=== PATIENT | female | born 1955 | race Caucasian/White ===

== ENCOUNTER 2017-04-15 10:22 | Emergency (ER) | payer MEDICAID, OTHER ==
[~2017-04-15] VITALS: Ht 170.2 cm; Wt 90.7 kg
--- NOTE | 2017-04-15 10:22 | NUR ---
Patient SHANNANLuciano RENETTAS, triaged by RN and transferred to via wheelchair.
--- NOTE | 2017-04-15 10:24 | NUR ---
Dr. Rothman evaluating patient in OF.
[2017-04-15 10:27] VITALS: BP 152/80
--- NOTE | 2017-04-15 10:36 | NUR ---
PATIENT PRESENTS TO ED WITH RIGHT WRIST PAIN AND LEFT KNEE PAIN S/P MECHANICAL FALL . PT STATES DENIES DIZZINESS, DENIES HEAD INJURY OR KO . DENIES N/V/D; SKIN IS PINK/WARM/DRY; AAOX4 WITH EVEN AND STEADY GAIT; LUNGS CLEAR BL; HR EVEN AND REGULAR; PT DENIES ANY FEVER, CP, SOB, OR COUGH AT THIS TIME; PATIENT STATES PAIN OF 9/10 AT THIS TIME; VSS; PATIENT POSITIONED FOR COMFORT; HOB ELEVATED; BEDRAILS UP X2; BED DOWN. ER MD MADE AWARE OF PT STATUS.
--- NOTE | 2017-04-15 10:38 | NUR ---
PT TO X-RAY VIA WHEEL CHAIR
--- NOTE | 2017-04-15 10:52 | NUR ---
Patient returned from XRAY, transferred to OF.
--- NOTE | 2017-04-15 11:27 | NUR ---
Patient taken to XRAY via wheelchair by tech.
--- NOTE | 2017-04-15 11:49 | NUR ---
Pateint returned from XRAY, transferred to bed 7 for further care. RN evaluating patient at bedside.
--- NOTE | 2017-04-15 12:10 | NUR ---
AMBULATORY TO AND FROM RESTROOM WITH STEADY GAIT
--- NOTE | 2017-04-15 12:43 | NUR ---
Patient discharged with v/s stable. Written and verbal after care instructions given and explained. Patient verbalized understanding. Ambulatory with steady gait. All questions addressed prior to discharge. Advised to follow up with PMD. X-RAY READS HANDED TO PT TO F/U WITH PMD
[2017-04-15 12:44] VITALS: BP 136/73
== END 2017-04-15 12:43 | disposition home or self-care (01) ==
LOC: MED 10:22
DX: S00.31XA Abrasion of nose, initial encounter (principal); M25.562 Pain in left knee; M79.631 Pain in right forearm; Z88.0 Allergy status to penicillin; Z88.1 Allergy status to other antibiotic agents; E11.9 Type 2 diabetes mellitus without complications; I10 Essential (primary) hypertension; W01.0XXA Fall on same level from slipping, tripping and stumbling without subsequent striking against object, initial encounter; Y93.89 Activity, other specified; Y92.89 Other specified places as the place of occurrence of the external cause; Y99.8 Other external cause status
CPT/HCPCS: 70150; 73090; 73130; 73562; 82948; 99284

== ENCOUNTER 2018-07-12 12:24 | Emergency (ER) | payer OTHER ==
[~2018-07-12] VITALS: Ht 167.6 cm; Wt 89.5 kg
[2018-07-12 12:30] VITALS: BP 140/68
[2018-07-12 14:50] VITALS: BP 126/63
== END 2018-07-12 13:32 | disposition home or self-care (01) ==
LOC: MED 12:24
DX: S22.32XA Fracture of one rib, left side, initial encounter for closed fracture (principal); E11.9 Type 2 diabetes mellitus without complications; I10 Essential (primary) hypertension; Z90.49 Acquired absence of other specified parts of digestive tract; Z90.710 Acquired absence of both cervix and uterus; Z90.89 Acquired absence of other organs; Z98.890 Other specified postprocedural states; Z88.0 Allergy status to penicillin; Z88.1 Allergy status to other antibiotic agents; Z88.2 Allergy status to sulfonamides; W19.XXXA Unspecified fall, initial encounter; Y93.89 Activity, other specified; Y92.89 Other specified places as the place of occurrence of the external cause; Y99.8 Other external cause status
CPT/HCPCS: 71111; 82948; 99283

== ENCOUNTER 2020-03-28 05:13 | Emergency (ER) | payer OTHER ==
[~2020-03-28] VITALS: Ht 172.7 cm; Wt 95.3 kg
[2020-03-28 05:13] VITALS: BP 149/66
--- NOTE | 2020-03-28 05:20 | NUR ---
C/O FEVER & CHILLS X 3 HRS. TEMP WAS 100.7 ORAL. DENIES ANY COUGH, SOB, N,V, OR NEWBY. 0/10 PAIN. LUNG SOUNDS CLEAR ALL THROUGHOUT. SKIN IS WARM TO TOUCH AND DRY IN APPEARANCE. NO DISTRESS NOTED AT THIS TIME. SPO2 100% RA. EQUAL CHEST RISE AND FALL. VSS. PMH: HTN, DM ( ON INSULIN PUMP) AX: SULFA, SULFUR , PCN , TETRACYCLINE, METFORMIN
[2020-03-28] MEDS ORDERED: ACETAMINOPHEN EXTRA STRENGTH 500 MG TAB PO ONE (05:25)
--- NOTE | 2020-03-28 05:30 | NUR ---
FLU AND COVID ANTIGEN COLLECTED AND SENT TO LAB.
[2020-03-28] MEDS ORDERED: IBUPROFEN 600 MG TAB PO ONE (06:30)
[2020-03-28 06:53] VITALS: BP 149/66
--- NOTE | 2020-03-28 06:53 | NUR ---
Patient discharged with v/s stable. Written and verbal after care instructions given and explained. Patient alert, oriented and verbalized understanding of instructions. Wheel Chair AssisteD. All questions addressed prior to discharge. ID band removed. Patient advised to follow up with PMD. Rx of FLUCONAZOLE, AND CLOTRIMAZOLE given. Patient educated on indication of medication including possible reaction and side effects. Opportunity to ask questions provided and answered.
== END 2020-03-28 06:53 | disposition home or self-care (01) ==
LOC: MED 05:13
DX: R50.9 Fever, unspecified (principal); L30.4 Erythema intertrigo; E11.9 Type 2 diabetes mellitus without complications; I10 Essential (primary) hypertension; R56.9 Unspecified convulsions; Z88.0 Allergy status to penicillin; Z88.1 Allergy status to other antibiotic agents; Z88.2 Allergy status to sulfonamides; Z88.8 Allergy status to other drugs, medicaments and biological substances; Z20.828 Contact with and (suspected) exposure to other viral communicable diseases
CPT/HCPCS: 87804; 99283

== ENCOUNTER 2022-09-02 09:32 | Inpatient (IN) | payer OTHER ==
[~2022-09-02] VITALS: Ht 167.6 cm; Wt 76.7 kg
--- NOTE | 2022-09-02 09:33 | NUR ---
PT BIBA TO BED 7
[2022-09-02 09:39] VITALS: BP 134/65
[2022-09-02] MEDS ORDERED: LEVOFLOXACIN 500 MG/D5W PREMIX 100 ML IV ONE (09:40)
[2022-09-02] MEDS ORDERED: LORazepam 2 MG/ML VIAL IVP ONE (09:50)
--- NOTE | 2022-09-02 10:06 | NUR ---
1 L BY EMS FINISHED, RECHECKED BS, HI, DR CONWAY MADE AWARE
[2022-09-02 10:11] LABS: BASOPHILS % (AUTO) 0.8 % (0.0-2.0); EOSINOPHILS # (AUTO) 0.1 K/uL (0-0.4); EOSINOPHILS % (AUTO) 1.2 % (0.0-4.0); HEMATOCRIT 37.6 % (36-48); HEMOGLOBIN 12.5 g/dL (12.0-16.0); LYMPHOCYTES # (AUTO) 0.8 K/uL (2.5-16.5); LYMPHOCYTES % (AUTO) 16.2 % (20.5-51.1); MEAN CORPUSCULAR HEMOGLOBIN 30 pg (27-31); MEAN CORPUSCULAR HGB CONC 33 g/dL (33-37); MEAN CORPUSCULAR VOLUME 91.1 fL (80-94); MONOCYTES # (AUTO) 0.5 K/uL (0.8-1.0); MONOCYTES % (AUTO) 9.1 % (1.7-9.3); NEUTROPHILS # (AUTO) 3.7 K/uL (1.8-7.7); NEUTROPHILS % (AUTO) 72.7 % (42.2-75.2); PLATELET COUNT (AUTO) 130 K/uL (140-450); RED BLOOD CELL COUNT(AUTO) 4.13 MIL/uL (4.20-5.40); RED CELL DISTRIBUTION WIDTH 14.2 % (11.6-13.7); WHITE BLOOD COUNT (AUTO) 5.1 K/uL (4.8-10.8)
[2022-09-02 10:20] LABS: APPEARANCE,URINE CLEAR (CLEAR); BILIRUBIN,URINE NEGATIVE (NEGATIVE); BLOOD, URINE NEGATIVE (NEGATIVE); COLOR,URINE YELLOW (YELLOW); LEUKOCYTE ESTERASE ,URINE NEGATIVE (NEGATIVE); NITRITE, URINE NEGATIVE (NEGATIVE); UGLUCOSE 3+ (NEGATIVE)
--- NOTE | 2022-09-02 10:28 | NUR ---
ABG DONE RESULTS ARE pH 7.39, pCO2 32.5, pO2 70, HCO3 19.2. tHERE WAS NO ADVERSE REACTION. RESULTS GIVEN TO DOCTOR, NO ACTION REQUESTED AT THIS TIME.
--- NOTE | 2022-09-02 10:49 | NUR ---
PT RETURN FROM CT
[2022-09-02 11:09] LABS: ANION GAP 17.8 (8-16); CARBON DIOXIDE 24.4 mmol/L (21-32); POTASSIUM 4.2 mmol/L (3.5-5.1)
[2022-09-02 11:10] LABS: CREATININE 1.9 mg/dL (0.6-1.3); TOTAL BILIRUBIN 1.1 mg/dL (0.0-1.0)
[2022-09-02 11:11] LABS: ALBUMIN 3.7 g/dL (3.4-5.0)
[2022-09-02] MEDS ORDERED: ONDANSETRON 4 MG/2 ML VIAL IVP ONE (12:00)
[2022-09-02] MEDS ORDERED: PANTOPRAZOLE 40 MG INJ VIAL IVP ONE (12:45)
[2022-09-02] MEDS ORDERED: PROCHLORPERAZINE 10 MG/2 ML VIAL IVP ONE (12:45)
[2022-09-02 13:24] LABS: CARBON DIOXIDE 22.1 mmol/L (21-32); CREATININE 1.5 mg/dL (0.6-1.3); UREA NITROGEN, BLOOD 22 mg/dL (7-18)
[2022-09-02 13:30] LABS: GLUCOSE 892 mg/dL (74-106); SODIUM SERUM 195 mmol/L (136-145)
[2022-09-02 13:31] LABS: ANION GAP 103.1 (8-16); CHLORIDE 106 mmol/L (98-107)
[2022-09-02 13:33] LABS: GFR ARICAN-AMERICAN 45 mL/min (>90)
[2022-09-02 14:46] LABS: ANION GAP 18.3 (8-16); CREATININE 1.6 mg/dL (0.6-1.3); POTASSIUM 4.3 mmol/L (3.5-5.1)
[2022-09-02] MEDS ORDERED: INSULIN REGULAR, HUMAN 100 UNIT/ML VIAL IVP ONE ×2 (15:05→17:35)
[2022-09-02] MEDS ORDERED: NACL 0.9% 1,000 ML IV ONE (18:10)
[2022-09-02] MEDS ORDERED: [UNRECOGNIZED DRUG - CODE] PO (18:26)
[2022-09-02] MEDS ORDERED: [UNRECOGNIZED DRUG - CODE] (18:26)
[2022-09-02 18:45] VITALS: BP 142/60
--- NOTE | 2022-09-02 18:45 | NUR ---
RECEIVED PT FROM ER. REPORT RECEIVED BY YUDI MERINO. PLACED IN BED COMFORTABLY. ALERT AND ORIENTED X2. PT INCONTINENT TO BOWEL BLADDER. WITH SKIN CONDITION FOLLOWS: SCAB TO RT LEG, BOIL TO LT LEG. NOT IN ANY DISTRESS. WILL CONTINUE TO MONITOR.
--- NOTE | 2022-09-02 18:57 | NUR ---
Patient will be admitted to care of DR Rick ARMENTA. Admited to [facility] SURGMed/Surg. Will go to room 107A. Belongings list completed. Report to BEN.
--- NOTE | 2022-09-02 19:20 | NUR ---
BEDSIDE REPORT GIVEN DAVION FOR CONTINUITY OF CARE. MRSA SWAB COLLECTED.
--- NOTE | 2022-09-02 19:25 | NUR ---
RECEIVED REPORT FROM DAY SHIFT NURSE MARTIN FOR CONTINUITY OF CARE. PT IS VERY LETHARGIC. PT HAS LEFT AC 20 GAUGE SALINE LOCK. PT IS INCONTINENT TO BOWEL AND BLADDER. CURRENTLY RESTING IN BED. PT HAS HAD NO SEIZURES. PT FEELS WARM TO TOUCH. WILL MONITOR THE PT.
[2022-09-02 20:00] VITALS: BP 148/66
--- NOTE | 2022-09-02 20:26 | NUR ---
PT IS RUNNING A FEVER OF 103.4. MESSAGED PUBLISHING AGENT DOCTOR EDMOND. DOCTOR ORDERED. TYLENOL RECTAL. PT IS CURRENTLY ON IVF NS 80 CC/HR. COOLING MEASURES TAKEN. WILL CONTINUE TO MONITOR THE PT.
[2022-09-02] MEDS: INSULIN LISPRO SLIDING SCALE 100 UNITS/ML VIAL SUBQ PRN (20:59)
[2022-09-02] MEDS: ACETAMINOPHEN 650 MG SUPP RC PRN (21:01)
[2022-09-02] MEDS: BLOOD GLUCOSE MONITORING 1 DEV DEV FS SCH (21:20)
--- NOTE | 2022-09-02 22:00 | NUR ---
DR. ARMENTA CALLED SAYING THE PT IS NOT PART OF THE [facility]. TO CALL THE [facility]. PT NEEDS TO BE ADMITTED BY THE OTHER GROUP. DR. ARMENTA SAID HE WILL LEAVE SOME OF THE ORDERS INCASE THE PT HAS SEIZURES. WILL PAGED THE MOVING WORKER DOCTOR ABOUT THE SITUATION AND ADMITTING ORDERS.
[2022-09-03 04:00] VITALS: BP 159/72
--- NOTE | 2022-09-03 04:14 | NUR ---
VITAL SIGNS TAKEN. PT IS STILL RUNNING A FEVER. DROPPED DOWN FROM 103.2 TO 100.5. COOLING MEASURES STILL IN PLACE.
--- NOTE | 2022-09-03 04:30 | NUR ---
CHILDREN'S ZOO CARETAKER DOCTOR FOR [facility] HAS NOT CALLED BACK. CALLED AND PAGED THE GROUP AGAIN. WAITING FOR RESPONSE.
[2022-09-03] MEDS: ACETAMINOPHEN 650 MG SUPP RC PRN (05:12)
[2022-09-03] MEDS: BLOOD GLUCOSE MONITORING 1 DEV DEV FS SCH ×4 (06:51→20:40)
[2022-09-03] MEDS: INSULIN LISPRO SLIDING SCALE 100 UNITS/ML VIAL SUBQ PRN ×5 (06:51→20:42)
--- NOTE | 2022-09-03 07:54 | NUR ---
PER NIGHTSHIFT PIANO CASE MAKER FARI, THE PT'S ATTENDING PHYSICIAN WAS CHANGED TO [facility] BY DR. ARMENTA LAST NIGHT DUE TO ADMITTING ERROR. ADDITIONAL ORDER SEEN AT 22:00 ON 09/02/22 AFTER PT WAS ADMITTED TO FLOOR. PAGED DR. PAGAN REGARDING PT'S ELEVATED BLOOD SUGAR 347, TEMPERATURE OF 103 AFTER TYLENOL SUPPOSITORY GIVEN AT 0500--PT PLACED ON COOLING MEASURES--DR. PAGAN WAS NOT AWARE THIS WAS HIS PT
--- NOTE | 2022-09-03 08:10 | NUR ---
CALLED DR. PAGAN REGARDING PT, PER DR. PAGAN, HE REFUSES TO GIVE PT ORDERS UNTIL HE IS GIVEN DOCTOR TO DOCTOR REPORT FROM ACCEPTING PHYSICIAN. PAGED DR. ARMENTA ABOUT THE TRANSFER MD ORDER AND TO CALL DR. PAGAN REGARDING PT. AWAITING CALLBACK.
--- NOTE | 2022-09-03 08:20 | NUR ---
DR. PRUITT ROUNDING ON THE FLOOR FOR [facility]. EXPLAINED SITUATION TO HER, PER DR. PRUITT, DR. ARMENTA GAVE BRIEF REPORT ON PT LAST NIGHT AT SHIFT CHANGE. AT 22:00, DR. ARMENTA NOTIFIED DR. PRUITT THAT THERE WAS AN ADMITTING ERROR THE PT'S INSURANCE PUTS HER CARE UNDER [facility] AND TO "DO NOTHING". ADMISSION ORDERS WERE CANCELLED BY DR. ARMENTA AFTER THE FACT. DR. PRUITT CALLED DR. PAGAN TO EXPLAIN SITUATION AND TO ATTEMPT DOCTOR TO DOCTOR REPORT ON PT, DR. PAGAN REFUSED AND STATED TO "JUST GIVE THE PT ORDERS" AND TO NOT DO H&P ON HER. PER DR. PRUITT, NEW AM LABS, STAT LEVAQUIN, VANCO PER PHARMACY, KEPPRA 500MG BID, NEURO, NEPHRO, & ID DOCTOR CONSULTS, SWALLOW EVAL, INSERT KHALIL, AND TRANSFER PT TO TELE. ORDERS PLACED. NOTIFIED HUMAN RESOURCE PROFESSIONAL.
[2022-09-03] MEDS ORDERED: VANCOMYCIN PER PHARMACY MC PRN (08:40)
[2022-09-03] MEDS: levETIRAcetam 500 MG in NACL 0.9% 100 ML IV SCH ×2 (09:14→21:00)
[2022-09-03 10:20] LABS: BASOPHILS # (AUTO) 0.1 K/uL (0.00-0.22); BASOPHILS % (AUTO) 0.7 % (0.0-2.0); EOSINOPHILS % (AUTO) 0.1 % (0.0-4.0); HEMATOCRIT 44.5 % (36-48); HEMOGLOBIN 15.1 g/dL (12.0-16.0); LYMPHOCYTES # (AUTO) 0.9 K/uL (2.5-16.5); LYMPHOCYTES % (AUTO) 5.8 % (20.5-51.1); MEAN CORPUSCULAR HEMOGLOBIN 30 pg (27-31); MEAN CORPUSCULAR HGB CONC 34 g/dL (33-37); MEAN CORPUSCULAR VOLUME 89.2 fL (80-94); MONOCYTES % (AUTO) 6.9 % (1.7-9.3); NEUTROPHILS # (AUTO) 12.8 K/uL (1.8-7.7); NEUTROPHILS % (AUTO) 86.5 % (42.2-75.2); PLATELET COUNT (AUTO) 162 K/uL (140-450); RED BLOOD CELL COUNT(AUTO) 4.99 MIL/uL (4.20-5.40); RED CELL DISTRIBUTION WIDTH 14.2 % (11.6-13.7); WHITE BLOOD COUNT (AUTO) 14.8 K/uL (4.8-10.8)
[2022-09-03] MEDS ORDERED: LEVOFLOXACIN 250 MG/D5 PREMIX 50 ML IV SCH (10:30)
[2022-09-03 10:31] LABS: ALBUMIN 3.7 g/dL (3.4-5.0); ANION GAP 22.2 (8-16); CARBON DIOXIDE 20.6 mmol/L (21-32); CREATININE 2.8 mg/dL (0.6-1.3); TOTAL BILIRUBIN 0.8 mg/dL (0.0-1.0)
[2022-09-03 11:02] LABS: POTASSIUM 2.8 mmol/L (3.5-5.1)
[2022-09-03] MEDS ORDERED: LACTATED RINGERS 1,000 ML IV SCH (11:10)
--- NOTE | 2022-09-03 11:15 | NUR ---
SCREEN FOR LOW RUBEN SCALE AT RISK, CONTINUE TO FOLLOW PRESSURE ULCER PREVENTION INTERVENTIONS. -TURN AND REPOSITION PATIENT Q 2H, ASSIST IF NEEDED -ASSESS AND MONITOR SKIN CONDITION DURING POSITION CHANGES -OFFLOAD BILATERAL HEELS BY PLACING PILLOWS UNDER CALVES AT ALL TIMES, UNLESS OTHERWISE CONTRAINDICATED -PRESSURE REDISTRIBUTION BY PLACING PILLOWS AND OFFLOADING SACRALCOCCYX -KEEP SKIN CLEAN AND DRY AT ALL TIMES.
[2022-09-03 12:00] VITALS: BP 130/66
[2022-09-03] MEDS ORDERED: KCL 20 MEQ IN 100 mL PREMIX 200 ML IV SCH (12:00)
[2022-09-03 12:01] LABS: HEMATOCRIT 45.4 % (36-48); HEMOGLOBIN 15.3 g/dL (12.0-16.0); MEAN CORPUSCULAR HEMOGLOBIN 30 pg (27-31); MEAN CORPUSCULAR HGB CONC 34 g/dL (33-37); MEAN CORPUSCULAR VOLUME 89.4 fL (80-94); PLATELET COUNT (AUTO) 143 K/uL (140-450); RED BLOOD CELL COUNT(AUTO) 5.08 MIL/uL (4.20-5.40); RED CELL DISTRIBUTION WIDTH 14.4 % (11.6-13.7); WHITE BLOOD COUNT (AUTO) 17.1 K/uL (4.8-10.8)
[2022-09-03 12:14] LABS: ALBUMIN 3.8 g/dL (3.4-5.0); ANION GAP 22.7 (8-16); CARBON DIOXIDE 21.1 mmol/L (21-32); CREATININE 2.6 mg/dL (0.6-1.3); MAGNESIUM 1.9 mg/dL (1.8-2.4)
[2022-09-03 12:34] LABS: POTASSIUM 2.8 mmol/L (3.5-5.1)
[2022-09-03] MEDS: INSULIN LANTUS 100 UNITS/ML 10 ML VIAL SUBQ SCH (12:50)
[2022-09-03] MEDS: CEFEPIME 1,000 MG in DEXTROSE 5% 50 ML IV SCH ×2 (12:51→21:28)
[2022-09-03] MEDS ORDERED: VANCOMYCIN 750 MG in DEXTROSE 5% 250 ML IV SCH (13:00)
[2022-09-03 13:05] LABS: BASOPHILS % (MANUAL) 3 % (0-2); LYMPHOCYTES % (MANUAL) 3 % (20-46); MONOCYTES % (MANUAL) 9 % (5-12)
[2022-09-03] MEDS ORDERED: NACL 0.45% 1,000 ML IV SCH (13:45)
--- NOTE | 2022-09-03 13:45 | NUR ---
REASON FOR EVALUATION: LLE WOUND WOUND ASSESSMENT COMPLETED ON THIS 67 Y/O FEMALE ADMITTED TO [facility] UNIT FOR SEIZURE. PATIENT IS FROM HOME.PAST MEDICAL HISTORY INCLUDES SEIZURE DISORDER, DIABETES, HYPERTENSION. ALL ABOVE INFORMATION WAS OBTAINED FROM THE ADMISSION H&P. LABS ARE WBC 6.3, H/H 7.9/25.2, GLUCOSE 203, ALBUMIN 1.9. PATIENT IS LETHARGIC AT THIS TIME. SKIN IS WARM TO TOUCH. PLAN OF CARE AND PRESSURE PREVENTATIVE MEASURES DISCUSSED WITH PATIENT AND PRIMARY RN. PATIENT UNABLE TO COMPREHEND, LETHARGIC AT THIS TIME. PATIENT ADMITTED WITH LLE WOUND AND MULTIPLE SCABS ON RLE. COMORBIDITIES RELATED TO FURTHER SKIN BREAKDOWN SUCH IMPAIRED MOBILITY. INTEGUMENTARY: - LEFT LOWER EXTREMITY 2 X 2 X 0 CM ABSCESS OPEN WOUND WITH MODERATE PRULULENT DRAINAGE. PERIWOUND RED, TAUGHT, DRY, INTACT. - RLE MULTIPLE SMALL CLOSED SCABS. PERIWOUND DRY, PINK, INTACT. RECOMMENDATIONS: - LEFT LOWER EXTREMITY: CLEANSED WITH NS, PAT DRY, APPLIED DRY GAUZE, AND COVERED WITH ISLAND DRESSING BID AND PRN IF SOILED. - RLE MULTIPLE SMALL CLOSED SCABS:CLEANSE WITH NS, PAT DRY, AND LEAVE CATIA DAILY AND PRN IF SOILED. - OFFLOAD BILATERAL HEELS BY PLACING BILATERAL HEEL PROTECTORS. - TURN AND REPOSITION PATIENT Q2H TO LEFT AND RIGHT SIDE TO OFFLOAD SACRALCOCCYX. - ASSESS AND MONITOR SKIN CONDITION DURING POSITION CHANGE. PLEASE PAY ATTENTION TO SACRALCOCCYX AND HEELS. - KEEP SKIN DRY AND CLEAN AT ALL TIMES. - RD CONSULT RECOMMENDATIONS DISCUSSED WITH PRIMARY RN. WILL FOLLOW-UP PATIENT Q7-10 DAYS AND PRN. PLEASE CONTACT WOUND CARE NURSE FOR ANY CONCERNS AND CHANGES IN WOUND CONDITION. Addendum: 09/03/22 at 1449 by Thomas Quintanilla RN ADDITIONAL RECOMMENDATION: GENERAL SURGEON CONSULT FOR LLE ABSCESS. NOTIFIED PRIMARY RN.
[2022-09-03] MEDS ORDERED: NACL 0.45% IV ONE (14:15)
[2022-09-03] MEDS ORDERED: POTASSIUM CHLORIDE IV ONE (14:15)
[2022-09-03] MEDS ORDERED: LIDOCAINE IV ONE (14:15)
[2022-09-03] MEDS ORDERED: DEXT 5% IV ONE (14:15)
[2022-09-03] MEDS ORDERED: POTASSIUM CHLORIDE 40 MEQ in NACL 0.45% 1,000 ML IV SCH (14:15)
[2022-09-03] MEDS ORDERED: POTASSIUM CHL 20 MEQ/ 1/2 NS 1,000 ML IV SCH (14:30)
[2022-09-03] MEDS ORDERED: POTASSIUM CHLORIDE 20 MEQ in DEXTROSE 5% 1,000 ML IV SCH (14:35)
[2022-09-03] MEDS ORDERED: POTASSIUM CHL 20 MEQ / DEXT 5% 1,000 ML IV SCH (14:45)
[2022-09-03 15:02] LABS: MAGNESIUM 1.8 mg/dL (1.8-2.4); PHOSPHORUS 1.7 mg/dL (2.5-4.9)
[2022-09-03] MEDS: LIDOCAINE IV SCH ×2 (15:27→19:32)
[2022-09-03] MEDS: NACL 0.45% IV SCH ×2 (15:27→19:32)
[2022-09-03] MEDS: POTASSIUM CHLORIDE IV SCH ×2 (15:27→19:32)
[2022-09-03 16:00] VITALS: BP 155/62
[2022-09-03 16:55] LABS: APPEARANCE,URINE CLEAR (CLEAR); BILIRUBIN,URINE NEGATIVE (NEGATIVE); BLOOD, URINE 2+ (NEGATIVE); COLOR,URINE YELLOW (YELLOW); LEUKOCYTE ESTERASE ,URINE NEGATIVE (NEGATIVE); NITRITE, URINE NEGATIVE (NEGATIVE); UGLUCOSE 3+ (NEGATIVE)
--- NOTE | 2022-09-03 17:30 | NUR ---
PT WAS SEEN FOR DYSPHAGIA. PT WAS POCKETING FOR TRIALS OF APPLE SAUCE AND DIFFICULTY WITH INITIATING SWALLOW FOR TRIALS OF APPLE SAUCE. RECOMMENDATION NPO ALTERNATE MODE OF FEEDING
[2022-09-03] MEDS: LORazepam 2 MG/ML VIAL IVP PRN (17:35)
--- NOTE | 2022-09-03 17:36 | NUR ---
DELFIN IQBAL WITNESSED PT HAVING TONIC CLONIC SEIZURE. SEIZURE LASTED APPROX 2 MINS AND WENT INTO POST ICTAL. MEDICATED WITH PRN 2MG ATIVAN. PT PLACED ON 2L O2 VIA NASAL CANNULA AND GIVEN ICE PACKS FOR COOLING MEASURES. TEMP 100. 4. PRIMARY RN JEANETTE ASSESSED BLOOD SUGAR AT 432. NOTIFIED
[2022-09-03] MEDS: POTASSIUM CHL 20 MEQ/ 1/2 NS 1,000 ML IV SCH (17:55)
[2022-09-03 18:34] LABS: RBC,URINE 0-5 /HPF (0-5); WBC,URINE 0-5 /HPF (0-5)
[2022-09-03 19:01] LABS: BARBITURATE, URINE NEGATIVE ng/ml (NEG <=200); BENZODIAZEPINE, URINE POSITIVE ng/mL (NEG <=200); CANNABINOID, URINE NEGATIVE ng/mL (NEG <=50); COCAINE, URINE NEGATIVE ng/mL (NEG <=300); OPIATE, URINE NEGATIVE ng/mL (NEG <=2000); PHENCYCLIDINE SCREEN,URINE NEGATIVE ng/mL (NEG <=25)
--- NOTE | 2022-09-03 19:10 | NUR ---
RECEIVED PATIENT ASLEEP, MOVES WITH TOUCH, NO SIGNS OF DISTRESS NOTED, ON O2 @2LPM NC, IV INFUSING. ALL SAFETY MEASURES IN PLACE.
--- NOTE | 2022-09-03 20:42 | NUR ---
BLOOD SUGAR 393 MG/DL, INSULIN PER SLIDING SCALE GIVEN, 10 UNITS ORDERED. SCHEDULED MEDICATIONS GIVEN ORDERED.
[2022-09-03] MEDS: CLINDAMYCIN 600MG/D5W PM 50 ML IV SCH (20:54)
[2022-09-03] MEDS ORDERED: CEFEPIME 2,000 MG in DEXTROSE 5% 100 ML IV SCH (21:00)
--- NOTE | 2022-09-03 21:47 | NUR ---
PATIENT HAD LESS THAN 2 MINUTES SEIZURE, STAFF STAYED WITH PATIENT, SEIZURE PRECAUTIONS MAINTAINED. FREQUENTLY CHECK ON PATIENT.
[2022-09-03 22:41] LABS: TOTAL PROTEIN URINE 181.3 MG/DL
[2022-09-04] VITALS: BP 123/68
--- NOTE | 2022-09-04 00:15 | NUR ---
VITALS T 98.3, P 95, BP 123/68, RESP 18 AND O2 SATS 99% ON 2LPM NC.
[2022-09-04 00:53] LABS: ANION GAP 13.3 (8-16); CARBON DIOXIDE 25.7 mmol/L (21-32); CREATININE 2.2 mg/dL (0.6-1.3)
--- NOTE | 2022-09-04 02:15 | NUR ---
CHECKED ON PATIENT, PATIENT OPENS EYES AND TURNS HEAD WHEN NAME WAS CALLED, NO SIGNS OF DISTRESS NOTED, NO SIGNS OF PAIN/DISCOMFORT NOTED, ALL SAFETY/SEIZURE PRECAUTIONS MAINTAINED.
[2022-09-04 04:00] VITALS: BP 139/70
[2022-09-04] MEDS: CLINDAMYCIN 600MG/D5W PM 50 ML IV SCH (04:07)
--- NOTE | 2022-09-04 04:16 | NUR ---
SCHEDULED IV ANTIBIOTIC GIVEN ORDERED.
[2022-09-04] MEDS: POTASSIUM CHL 20 MEQ/ 1/2 NS 1,000 ML IV SCH (06:02)
--- NOTE | 2022-09-04 06:05 | NUR ---
BLOOD SUGAR 421 MG/DL, WAS NOTIFIED. AWAITING RESPONSE. PATIENT GIVEN 10 UNITS.
[2022-09-04] MEDS: BLOOD GLUCOSE MONITORING 1 DEV DEV FS SCH ×4 (06:48→21:21)
[2022-09-04] MEDS: INSULIN LISPRO SLIDING SCALE 100 UNITS/ML VIAL SUBQ PRN ×4 (06:53→21:41)
[2022-09-04 07:17] LABS: BASOPHILS % (AUTO) 0.2 % (0.0-2.0); EOSINOPHILS % (AUTO) 0.1 % (0.0-4.0); HEMATOCRIT 38.3 % (36-48); HEMOGLOBIN 13.3 g/dL (12.0-16.0); LYMPHOCYTES # (AUTO) 0.7 K/uL (2.5-16.5); LYMPHOCYTES % (AUTO) 6.8 % (20.5-51.1); MEAN CORPUSCULAR HEMOGLOBIN 31 pg (27-31); MEAN CORPUSCULAR HGB CONC 35 g/dL (33-37); MEAN CORPUSCULAR VOLUME 89.6 fL (80-94); MONOCYTES # (AUTO) 0.7 K/uL (0.8-1.0); MONOCYTES % (AUTO) 6.8 % (1.7-9.3); NEUTROPHILS # (AUTO) 9.3 K/uL (1.8-7.7); NEUTROPHILS % (AUTO) 86.1 % (42.2-75.2); PLATELET COUNT (AUTO) 112 K/uL (140-450); RED BLOOD CELL COUNT(AUTO) 4.28 MIL/uL (4.20-5.40); RED CELL DISTRIBUTION WIDTH 14.5 % (11.6-13.7); WHITE BLOOD COUNT (AUTO) 10.8 K/uL (4.8-10.8)
[2022-09-04 07:22] LABS: PROTHROMBIN TIME 11.9 secs (10.8-13.4)
[2022-09-04 07:32] LABS: ALBUMIN 2.9 g/dL (3.4-5.0); ANION GAP 17.3 (8-16); CARBON DIOXIDE 21.6 mmol/L (21-32); POTASSIUM 5.9 mmol/L (3.5-5.1); TOTAL BILIRUBIN 1.2 mg/dL (0.0-1.0)
[2022-09-04 07:57] LABS: CHOL/HDL RATIO 4.5 (1-4.5)
[2022-09-04 08:00] VITALS: BP 124/68
[2022-09-04] MEDS: levETIRAcetam 500 MG in NACL 0.9% 100 ML IV SCH (08:30)
[2022-09-04] MEDS: CEFEPIME 1,000 MG in DEXTROSE 5% 50 ML IV SCH ×2 (08:31→21:23)
[2022-09-04] MEDS: INSULIN LANTUS 100 UNITS/ML 10 ML VIAL SUBQ SCH (08:36)
[2022-09-04] MEDS ORDERED: INSULIN REGULAR, HUMAN 100 UNIT/ML VIAL IVP ONE (09:20)
--- NOTE | 2022-09-04 09:57 | NUR ---
PATIENT HAS BEEN SCREENED AND CATEGORIZED MODERATE NUTRITION RISK. PATIENT WILL BE SEEN WITHIN 3-5 DAYS OF ADMISSION. 09/02/22-09/07/[address]
[2022-09-04] MEDS: NACL 0.45% 1,000 ML IV SCH ×2 (10:01→23:19)
[2022-09-04] MEDS: NACL 0.9% IV SCH ×2 (13:00→20:46)
[2022-09-04] MEDS: CLINDAMYCIN IV SCH ×2 (13:00→20:46)
[2022-09-04 13:26] LABS: ANION GAP 13.1 (8-16); CARBON DIOXIDE 23.3 mmol/L (21-32); CREATININE 1.8 mg/dL (0.6-1.3); POTASSIUM 4.4 mmol/L (3.5-5.1)
[2022-09-04] MEDS ORDERED: HYDROGEN PEROXIDE 3% 240 ML BTL TP ONE (14:02)
[2022-09-04] MEDS ORDERED: BUPIVACAINE-MPF/EPI 0.25% 30 ML VIAL INJ ONE (14:02)
[2022-09-04] MEDS ORDERED: LIDOCAINE 1% 500 MG/50 ML VIAL ONE (14:02)
[2022-09-04] MEDS ORDERED: PROPOFOL 200 MG/20 ML VIAL IV ONE (14:46)
[2022-09-04] MEDS ORDERED: HYDROcodone/APAP 5/325 MG 1 TAB TAB PO PRN (15:00)
[2022-09-04 18:00] VITALS: BP 121/69
[2022-09-04 19:07] LABS: ANION GAP 11.7 (8-16); CARBON DIOXIDE 25.9 mmol/L (21-32); CREATININE 1.7 mg/dL (0.6-1.3); POTASSIUM 3.6 mmol/L (3.5-5.1)
--- NOTE | 2022-09-04 19:10 | NUR ---
PATIENT LYING ON THE BED, PATIENT IS AWAKE, ALERT, ANSWERS QUESTIONS WHEN ASKED, PATIENT HAS MIDLINE DOUBLE LUMEN ON LEFT UPPER ARM. ALL SAFETY MEASURES IN PLACE.
[2022-09-04] MEDS ORDERED: levETIRAcetam 1,000 MG in NACL 0.9% 100 ML IV SCH (21:00)
--- NOTE | 2022-09-04 21:00 | NUR ---
BLOOD SUGAR 165 MG/ DL, GIVEN 2 UNITS PER SLIDING SCALE. WILL CONTINUE TO MONITOR THE PATIENT.
[2022-09-04] MEDS: levETIRAcetam 1,000 MG in NACL 0.9% 100 ML IV SCH (22:04)
--- NOTE | 2022-09-04 23:20 | NUR ---
PATIENT IS AWAKE, DENIES PAIN, DENIES SOB. BED IN LOW AND LOCKED POSITION, SEIZURE PRECAUTIONS MAINTAINED.
[2022-09-05] VITALS: BP 125/60
--- NOTE | 2022-09-05 00:18 | NUR ---
VITALS T 97.5, P 66, BP 125/60, RESP 16, O2 SATS 99% ON ROOM AIR. ALL SAFETY MEASURES IN PLACE.
[2022-09-05 03:22] LABS: ANION GAP 13.3 (8-16); CARBON DIOXIDE 23.2 mmol/L (21-32); CREATININE 1.4 mg/dL (0.6-1.3); POTASSIUM 3.5 mmol/L (3.5-5.1)
[2022-09-05] MEDS: CLINDAMYCIN IV SCH ×3 (04:32→20:49)
[2022-09-05] MEDS: NACL 0.9% IV SCH ×3 (04:32→20:49)
--- NOTE | 2022-09-05 04:32 | NUR ---
SCHEDULED IV ANTIBIOTIC GIVEN ORDERED. PATIENT IS AWAKE, PATIENT DENIES PAIN, STATED "I AM OKAY", REPOSITIONED, BEDSIDE CARE DONE, WILL CONTINUE TO MONITOR THE PATIENT.
--- NOTE | 2022-09-05 06:30 | NUR ---
WOUND CARE DONE ON WOUND ON LEFT LOWER EXTREMITY, S/P DEBRIDEMENT, ORDERED. PATIENT TOLERATED WELL. NO SIGNS OF PAIN NOTED.
[2022-09-05] MEDS: BLOOD GLUCOSE MONITORING 1 DEV DEV FS SCH ×4 (06:34→20:55)
[2022-09-05] MEDS: INSULIN LISPRO SLIDING SCALE 100 UNITS/ML VIAL SUBQ PRN ×4 (06:35→20:52)
[2022-09-05 06:47] LABS: ALBUMIN 2.7 g/dL (3.4-5.0); ANION GAP 13.3 (8-16); CARBON DIOXIDE 23.3 mmol/L (21-32); CREATININE 1.4 mg/dL (0.6-1.3); MAGNESIUM 2.1 mg/dL (1.8-2.4); POTASSIUM 3.6 mmol/L (3.5-5.1); TOTAL BILIRUBIN 1.4 mg/dL (0.0-1.0)
[2022-09-05 06:52] LABS: BASOPHILS % (AUTO) 0.3 % (0.0-2.0); HEMATOCRIT 36.6 % (36-48); HEMOGLOBIN 12.8 g/dL (12.0-16.0); LYMPHOCYTES # (AUTO) 1.1 K/uL (2.5-16.5); MEAN CORPUSCULAR HEMOGLOBIN 31 pg (27-31); MEAN CORPUSCULAR HGB CONC 35 g/dL (33-37); MEAN CORPUSCULAR VOLUME 87.8 fL (80-94); MONOCYTES # (AUTO) 0.6 K/uL (0.8-1.0); MONOCYTES % (AUTO) 5.4 % (1.7-9.3); NEUTROPHILS % (AUTO) 84.3 % (42.2-75.2); PLATELET COUNT (AUTO) 101 K/uL (140-450); RED BLOOD CELL COUNT(AUTO) 4.17 MIL/uL (4.20-5.40); RED CELL DISTRIBUTION WIDTH 14.5 % (11.6-13.7); WHITE BLOOD COUNT (AUTO) 10.7 K/uL (4.8-10.8)
--- NOTE | 2022-09-05 07:13 | NUR ---
receive the patinet from the third shift lieutenant rn in rm 107A aox1 with admitting diagnosis of seizures , will continue to monitor
--- NOTE | 2022-09-05 07:25 | NUR ---
ENDORSED PATIENT TO DAY NURSE FOR CONTINUITY OF CARE. PATIENT IN STABLE CONDITION.
[2022-09-05 08:55] LABS: ANION GAP 15.1 (8-16); CARBON DIOXIDE 22.5 mmol/L (21-32); CREATININE 1.3 mg/dL (0.6-1.3); POTASSIUM 3.6 mmol/L (3.5-5.1)
[2022-09-05] MEDS: CEFEPIME 1,000 MG in DEXTROSE 5% 50 ML IV SCH ×2 (09:46→20:49)
[2022-09-05] MEDS: levETIRAcetam 1,000 MG in NACL 0.9% 100 ML IV SCH (09:47)
[2022-09-05] MEDS: INSULIN LANTUS 100 UNITS/ML 10 ML VIAL SUBQ SCH (09:48)
[2022-09-05 10:45] VITALS: BP 125/59
--- NOTE | 2022-09-05 11:30 | NUR ---
md bolaños made rounds . given an order for from nothing per mouth to regular diet post left leg abscess debridement
[2022-09-05 14:17] LABS: ANION GAP 16.1 (8-16); CARBON DIOXIDE 22.9 mmol/L (21-32); CREATININE 1.3 mg/dL (0.6-1.3)
--- NOTE | 2022-09-05 16:01 | NUR ---
DC PLANNING ASSESSMENT COMPLETE PLEASE REFER TO ASSESSMENT FOR ADDITIONAL DETAILS ANGELITA ATTEMPTED TO MEET PT AT BEDSIDE HOWEVER, PT STRUGGLED TO COMPLETE ASSESSMENT, THEREFORE ANGELITA REQUESTED PERMISSION TO CALL ENRIQUETA TO GATHER COLLAT INFO. ENRIQUETA ONLY PROVIDED INFORMATION KNOWN TO HER. PT IS A 67 YR OLD FEMALE ADMITTED TO [facility] FROM HOME WITH DX OF SEIZURE. PT HAS PAST MEDICAL HX OF SEIZURE DISORDER, DIABETES, HYPERTENSION ENRIQUETA REPORTS PT HAS LIMITED FAMILY SUPPORT. PT IS REPORTED TO HAVE TWO SISTERS WHO ARE NOT ACTIVE IN HER LIFE AND ARE REPORTED TO BE MOVING OUT OF AREA. ENRIQUETA REPORTS SHE DOES NOT HAVE CONTACT INFO FOR PTS SISTERS. ENRIQUETA REPORTS PT HAS ADEQUATE FRIEND SUPPORT AND REPORTS SHE AND PTS ROOMMATE SEVERINO HUNTER ARE ALL HELPFUL IN EACH OTHER LIVES. ANGELITA SPOKE WITH ENRIQUETA AND ENCOURAGED ENRIQUETA TO DISCUSS POA WHEN APPROPRIATE WITH PT, PT IS REPORTED TO HAVE LIMITED ACTIVE FAMILY INVOLVEMENT. ENRIQUETA VERBALIZED UNDERSTANDING AND ACCEPTED AD OFFERED BY ANGELITA. AD TO BE LEFT AT PTS BEDSIDE FOR PT. PT IS REPORTED TO UTILIZE CANE AND IS REPORTED TO COMPLETE ADL'S INDEPENDENTLY. PT RESIDES IN A GROUND FLOOR APT, WITH HER FRIEND AT THE ADDRESS LISTED ON FILE. ENRIQUETA REPORTS PT COMPLETES ALL ADL'S INDEPENDENTLY AND DOES NOT REQUIRE CAREGIVER. ENRIQUETA REPORTS PT IS ANOX4 AT BASELINE. PER ENRIQUETA PT CONFUSED DUE TO SEIZURE AND BELIEVES PT WOULD BE AGREEABLE TP PHYSICIANS RX. TENTATIVE DC PLAN BASED ON PHYSICIANS RECOMMENDATIONS. Addendum: 09/05/22 at 1603 by Yoan HOPPER Amended: Links added.
--- NOTE | 2022-09-05 18:32 | NUR ---
will endorse to cage shift manager rn for continuity of care
[2022-09-05 20:00] VITALS: BP 133/75
--- NOTE | 2022-09-05 20:00 | NUR ---
NURSE REPORT REPORT OBTAINED FROM [facility] NURSE RAHMAN AT 1915 AND THIS NURSE ASSUMED CARE OF PATIENT. VSS. AFEB. NO C/O PAIN. 1/2 NS INFUSING AT 70 ML/HR. KHALIL DRAINING YELLOW URINE. VELMA PARSON RN
[2022-09-05 20:35] LABS: ANION GAP 12.8 (8-16); CARBON DIOXIDE 25.1 mmol/L (21-32); CREATININE 1.4 mg/dL (0.6-1.3); POTASSIUM 3.9 mmol/L (3.5-5.1)
[2022-09-05] MEDS: LORazepam 2 MG/ML VIAL IVP PRN (22:00)
[2022-09-05] MEDS: levETIRAcetam 500 MG TAB PO SCH (22:01)
[2022-09-06] VITALS: BP 149/70
--- NOTE | 2022-09-06 | NUR ---
NURSE NOTES VSS. AFEB. TELE MONITOR WITH SR 72.
[2022-09-06 00:43] LABS: ANION GAP 14.5 (8-16); CARBON DIOXIDE 22.9 mmol/L (21-32); CREATININE 1.3 mg/dL (0.6-1.3); POTASSIUM 3.4 mmol/L (3.5-5.1)
[2022-09-06 04:45] VITALS: BP 132/86
[2022-09-06] MEDS: CLINDAMYCIN IV SCH ×3 (05:00→15:21)
[2022-09-06] MEDS: NACL 0.9% IV SCH ×3 (05:00→15:21)
[2022-09-06 06:08] LABS: BASOPHILS % (AUTO) 0.5 % (0.0-2.0); EOSINOPHILS % (AUTO) 0.4 % (0.0-4.0); HEMATOCRIT 39.5 % (36-48); HEMOGLOBIN 13.5 g/dL (12.0-16.0); LYMPHOCYTES # (AUTO) 0.8 K/uL (2.5-16.5); LYMPHOCYTES % (AUTO) 12.7 % (20.5-51.1); MEAN CORPUSCULAR HEMOGLOBIN 30 pg (27-31); MEAN CORPUSCULAR HGB CONC 34 g/dL (33-37); MONOCYTES # (AUTO) 0.4 K/uL (0.8-1.0); MONOCYTES % (AUTO) 6.8 % (1.7-9.3); NEUTROPHILS # (AUTO) 5.1 K/uL (1.8-7.7); NEUTROPHILS % (AUTO) 79.6 % (42.2-75.2); PLATELET COUNT (AUTO) 89 K/uL (140-450); RED BLOOD CELL COUNT(AUTO) 4.44 MIL/uL (4.20-5.40); RED CELL DISTRIBUTION WIDTH 14.3 % (11.6-13.7); WHITE BLOOD COUNT (AUTO) 6.5 K/uL (4.8-10.8)
[2022-09-06 06:37] LABS: ALBUMIN 2.8 g/dL (3.4-5.0); ANION GAP 12.6 (8-16); CREATININE 1.2 mg/dL (0.6-1.3); MAGNESIUM 1.9 mg/dL (1.8-2.4); POTASSIUM 3.6 mmol/L (3.5-5.1); TOTAL BILIRUBIN 1.3 mg/dL (0.0-1.0)
[2022-09-06] MEDS: BLOOD GLUCOSE MONITORING 1 DEV DEV FS SCH ×4 (06:55→21:02)
[2022-09-06] MEDS: INSULIN LISPRO SLIDING SCALE 100 UNITS/ML VIAL SUBQ PRN ×4 (06:56→21:07)
--- NOTE | 2022-09-06 07:03 | NUR ---
NURSE NOTES AM BG 273- GIVEN 6 UNITS HUMALOG
--- NOTE | 2022-09-06 07:07 | NUR ---
receive the patient from the night supervisor rn in rm 107A aox2 admitting diagnosis of seizure . will continue to monitor
--- NOTE | 2022-09-06 07:25 | NUR ---
NURSE REPORT REPORT GIVEN DAYSHIFT NURSE GERARDO TO ASSUME CARE OF PATIENT. ALL QUESTIONS ANSWERED. PATIENT NEED MIDLINE INSERTED AND SOFT RESTRAINTS ON AND HAS BEEN ORDERED BY DR PRUITT.
[2022-09-06] MEDS: levETIRAcetam 500 MG TAB PO SCH ×2 (08:57→21:02)
[2022-09-06] MEDS: INSULIN LANTUS 100 UNITS/ML 10 ML VIAL SUBQ SCH (08:59)
[2022-09-06] MEDS: CEFEPIME 1,000 MG in DEXTROSE 5% 50 ML IV SCH ×2 (09:00→15:21)
--- NOTE | 2022-09-06 09:30 | NUR ---
md blanc made some rounds . check the wound on the left leg . no sign and symptoms of infection . afebrile . no bleeding . no redness on the wound site . change the wound dressing
[2022-09-06 10:45] VITALS: BP 153/70
[2022-09-06 13:01] LABS: ANION GAP 12.2 (8-16); CREATININE 1.2 mg/dL (0.6-1.3); POTASSIUM 4.2 mmol/L (3.5-5.1)
--- NOTE | 2022-09-06 13:30 | NUR ---
PICC line double lumen has inserted by the PICC line nurse .
--- NOTE | 2022-09-06 14:00 | NUR ---
PICC line has been verified by xray . ok to be use
--- NOTE | 2022-09-06 14:30 | NUR ---
all the intravenous antibiotic will start to be infuse
--- NOTE | 2022-09-06 16:52 | NUR ---
09/06/22 RD INITIAL ASSESSMENT COMPLETED PLEASE REFER TO NUTRITION ASSESSMENT UNDER CARE ACTIVITY FOR ESTIMATED NUTRITIONAL NEEDS. 1. RECOMMEND CONTINUE [id number], PUREE DIET TOLERATED 2. PROVIDED NUTRITION EDUCATION WITH HANDOUTS FOR DM 3. RD TO FOLLOW-UP 7 DAYS, LOW RISK REVIEWED BY ISAK GUAJARDO RD
[2022-09-06 18:31] LABS: ANION GAP 12.3 (8-16); CARBON DIOXIDE 26.2 mmol/L (21-32); CREATININE 1.2 mg/dL (0.6-1.3); POTASSIUM 3.5 mmol/L (3.5-5.1)
[2022-09-06] MEDS ORDERED: VANCOMYCIN PER PHARMACY MC PRN (18:50)
--- NOTE | 2022-09-06 19:11 | NUR ---
will endorse to foreign exchange trader rn fro continuity of care . for antibiotics therapy for left leg cellulitis
--- NOTE | 2022-09-06 19:11 | NUR ---
RECEIVED PT . W/O RESTRAINT PER AM NURSE CONT. OBSERVATION IF THE PT STILL NEED TO PUT IT BACK ON RESTRAINT , PT. RESTING COMFORTABLY ON BED , NO SIGNS OF AGITATION , CAN FOLLOW SIMPLE COMMAND , AND ANSWER SIMPLE QUESTION LIKE HOW ARE TODAY ? SHE SAID I'M OK , BED ALARM ON , DENIES ANY PAIN , WILL CONT. TO MONITOR
[2022-09-06 20:00] VITALS: BP 136/76
[2022-09-06] MEDS ORDERED: VANCOMYCIN 1GM/DEXT 5% PREMIX 200 ML IV SCH (20:00)
--- NOTE | 2022-09-06 20:05 | NUR ---
PER CHRIS. STAFF PT IS TO BE BONE SCAN ALEKSANDAR AM , MAKE SURE THERE IS GOOD IV ACCESS - WILL ENDORSE . Addendum: 09/06/22 at 2007 by Kassy Bhatt RN THE ABOVE NURSE'S NOTE ABOUT BONE SCAN IS AN ERROR ENTRY , WRONG PT - KADEN
[2022-09-06] MEDS ORDERED: VANCOMYCIN 1,000 MG VIAL ONE (20:40)
--- NOTE | 2022-09-06 22:28 | NUR ---
REMINDING DR PAGAN HIS PT STILL HAVE NO RESUSCITATION ORDER . Addendum: 09/06/22 at 0454 by Kassy Bhatt RN PER DR. PAGAN - LET DR. BRO KNOW IT ALEKSANDAR . CHARGE NURSE AWARE .
[2022-09-07] VITALS: BP 122/85
--- NOTE | 2022-09-07 | NUR ---
ROUNDS , NO S/SX OF ACUTE DISTRESS NOTED AT THIS TIME , ON TELE MONITOR - SR , WILL CONT. TO MONITOR .
--- NOTE | 2022-09-07 02:00 | NUR ---
SLEEPING , BED ALARM ON
[2022-09-07 06:22] LABS: BASOPHILS % (AUTO) 0.4 % (0.0-2.0); EOSINOPHILS # (AUTO) 0.1 K/uL (0-0.4); EOSINOPHILS % (AUTO) 1.3 % (0.0-4.0); HEMATOCRIT 37.6 % (36-48); HEMOGLOBIN 12.9 g/dL (12.0-16.0); LYMPHOCYTES # (AUTO) 1.1 K/uL (2.5-16.5); LYMPHOCYTES % (AUTO) 21.9 % (20.5-51.1); MEAN CORPUSCULAR HEMOGLOBIN 30 pg (27-31); MEAN CORPUSCULAR HGB CONC 34 g/dL (33-37); MEAN CORPUSCULAR VOLUME 88.3 fL (80-94); MONOCYTES # (AUTO) 0.6 K/uL (0.8-1.0); MONOCYTES % (AUTO) 11.1 % (1.7-9.3); NEUTROPHILS # (AUTO) 3.4 K/uL (1.8-7.7); NEUTROPHILS % (AUTO) 65.3 % (42.2-75.2); PLATELET COUNT (AUTO) 115 K/uL (140-450); RED BLOOD CELL COUNT(AUTO) 4.26 MIL/uL (4.20-5.40); RED CELL DISTRIBUTION WIDTH 14.3 % (11.6-13.7); WHITE BLOOD COUNT (AUTO) 5.1 K/uL (4.8-10.8)
[2022-09-07] MEDS: BLOOD GLUCOSE MONITORING 1 DEV DEV FS SCH ×3 (06:48→16:46)
[2022-09-07] MEDS: INSULIN LISPRO SLIDING SCALE 100 UNITS/ML VIAL SUBQ PRN ×3 (06:49→16:45)
[2022-09-07 06:57] LABS: ANION GAP 13.9 (8-16); CARBON DIOXIDE 22.7 mmol/L (21-32); CREATININE 1.2 mg/dL (0.6-1.3); MAGNESIUM 1.8 mg/dL (1.8-2.4); POTASSIUM 3.6 mmol/L (3.5-5.1)
--- NOTE | 2022-09-07 07:27 | NUR ---
GOT REPORT FROM THE ELASTIC ATTACHER OVERLOCK, PT AWAKE DISCUSSED POC, NO SOB.[id number]
--- NOTE | 2022-09-07 07:27 | NUR ---
ENDORSED TO AM NURSE , PT IS CALM , NO S/SX OF AGITATION , COOPERATIVE FOR THE WHOLE SHIFT , NO RESTRAINT FOR THE MY WHOLE SHIFT APPLIED , I TOLD TO WILBER WILSON SHE HAVE TO REPORT IT TO THE MD DURING ROUNDS ABOUT THE RESTRAINT ORDER IF WILL DISCONTINUE - WILBER WILSON VERBALIZES UNDERSTANDING , BED ALARM ON , CALL LIGHT WITHIN REACH .
[2022-09-07] MEDS: INSULIN LANTUS 100 UNITS/ML 10 ML VIAL SUBQ SCH (08:14)
[2022-09-07] MEDS: levETIRAcetam 500 MG TAB PO SCH (08:19)
[2022-09-07 09:26] LABS: ALBUMIN 2.5 g/dL (3.4-5.0)
[2022-09-07 10:00] VITALS: BP 122/85
[2022-09-07] MEDS ORDERED: SULF-59 PO (13:10)
[2022-09-07] MEDS ORDERED: KEP500 PO (13:10)
[2022-09-07] MEDS ORDERED: SULFAMETH/TRIMETH DS 800/160MG 1 TAB PO SCH (13:10)
--- NOTE | 2022-09-07 14:12 | NUR ---
RECEIVED ORDER FOR PT TO GO TO SNF FOR PHYSICAL THERAPY. FAXED TO THE FOLLOWING SNF'S: [facility], [facility], [facility], [facility], [facility], [facility], AND [facility]. SPOKE WITH WILLIAMS AT [facility] LOCATED AT [address] [place] [address]. PT WAS ACCEPTED AND WILL BE GOING TO ROOM 23-D UNDER THE CARE OF DR BRO. PROSPER FROM [facility] G[facility] SNF AUTH#[id number] AND TRANSPORTATION AUTH#[id number]. TRANSPORTATION SET UP WITH [facility] WITH A 1800 ART EDUCATION PROFESSOR TIME BUT I INFORMED THEM TO NOTIFY NURSING STATION WITH THE CORRECT ETA. NURSE DAVID AND FRIEND ENRIQUETA NOTIFIED OF THE ABOVE INFORMATION
[2022-09-07 16:00] VITALS: BP 125/65
--- NOTE | 2022-09-07 17:51 | NUR ---
PT IS NOT IN RESTRAINTS, R UPPER LINE IS TAKEN OUT CALLED THE TERESA [facility], NO ONE TO GET REPORT TOLD THAT THE NURSES ARE BUSY AND THEY WILL CALL BACK.[id number]
--- NOTE | 2022-09-07 18:13 | NUR ---
GAVE REPORT TO TERESA SHELTON NURSE, DISCHARGE PAPER GIVEN TO THE PATIENT.[id number]
--- NOTE | 2022-09-07 18:34 | NUR ---
KHALIL TAKEN OUT , PT GIVEN ALL HER BELONGING AND LEFT THE UNIT WITH TRANSPORTERS.[id number]
[2022-09-07] MEDS ORDERED: VANCOMYCIN 1,000 MG in NACL 0.9% 250 ML IV SCH (21:00)
== END 2022-09-07 18:43 | DRG 720 ==
LOC: MED 09:32 → MMU 18:11 → MTU 19:38
PROVIDERS: ADMIT Internal Medicine; ATTEND Internal Medicine
PROC: 0H9LXZZ Drainage of Left Lower Leg Skin, External Approach (ICD-10-PCS; principal; 2022-09-04 13:10)
PROC: 02HV33Z Insertion of Infusion Device into Superior Vena Cava, Percutaneous Approach (ICD-10-PCS; 2022-09-06)
PROC: B548ZZA Ultrasonography of Superior Vena Cava, Guidance (ICD-10-PCS; 2022-09-06)
DX: A41.9 Sepsis, unspecified organism (principal); N17.0 Acute kidney failure with tubular necrosis; J69.0 Pneumonitis due to inhalation of food and vomit; G93.40 Encephalopathy, unspecified; E87.0 Hyperosmolality and hypernatremia; I48.91 Unspecified atrial fibrillation; L02.416 Cutaneous abscess of left lower limb; G40.909 Epilepsy, unspecified, not intractable, without status epilepticus; L03.116 Cellulitis of left lower limb; N17.9 Acute kidney failure, unspecified; E11.65 Type 2 diabetes mellitus with hyperglycemia; Z20.822 Contact with and (suspected) exposure to COVID-19; R65.20 Severe sepsis without septic shock; I12.9 Hypertensive chronic kidney disease with stage 1 through stage 4 chronic kidney disease, or unspecified chronic kidney disease; N18.9 Chronic kidney disease, unspecified; Z88.0 Allergy status to penicillin; Z88.2 Allergy status to sulfonamides; Z90.49 Acquired absence of other specified parts of digestive tract; Z88.1 Allergy status to other antibiotic agents
CPT/HCPCS: 36415; 36600; 70450; 71045; 76770; 80048; 80053; 80305; 81001; 81003; 82550; 82553; 82570; 82803; 82948; 83036; 83605; 83735; 83880; 84100; 84156; 84300; 84484; 85025; 85610; 85730; 86886; 86900; 86901; 87040; 87070; 87075; 87081; 87086; 87186; 87205; 92610; 93005; 95816; 96365; 96375; 96376; 97163-GP; 97530; 99285; C9113; J0692; J0780; J1815; J1953; J1956; J2001; J2060; J2405; J2704; J3370; J3480; J3490; J7030; J7060; Q0092

== ENCOUNTER 2023-01-09 13:07 | Inpatient (IN) | payer OTHER ==
[~2023-01-09] VITALS: Ht 172.7 cm; Wt 78.9 kg
[~2023-01-09 13:07] MED LIST: KEP500 PO; SULF-59 PO; [UNRECOGNIZED DRUG - CODE]; [UNRECOGNIZED DRUG - CODE] PO
[2023-01-09 14:01] VITALS: BP 136/101; PULSE 87; RESP 20; TEMP 98.4; O2SAT 99
[2023-01-09] MEDS ORDERED: VANCOMYCIN 1,000 MG in DEXTROSE 5% 250 ML IV ONE (14:45)
--- NOTE | 2023-01-09 15:33 | NUR ---
Jen giraldo in [facility] - 01/09/23 at 1533 by MEDSC PT TO BED 9.
--- NOTE | 2023-01-09 15:39 | NUR ---
67YO F PRESENTS W/LT LEG SWELLING, REDNESS, PRESSURE, PAIN X 4 DAYS WORSENING TODAY RADIATING UP TO HER LEG. PT STATES SHE WAS SEEN BY A HEALTH NURSE TODAY AT HOME AND WAS RECOMMENDED TO BE SEEN IN ED FOR EVALUATION/TREATMENT. PT STATES SHE HAS HAD I&D TO [facility] A FEW MONTHS AGO. DENIES FEVER, VOMITING, DRAINAGE, CP, SOB, CHILLS, URINARY SYMPTOMS, FLU SYMPTOMS. SKIN INTACT W/REDNESS AND SWELLING NOTED TO LT LEG. PT STATES SHE HAS BED BUGS AT HOME, HEALTH DEPARTMENT RECOMMENDS SKIN TEST TO DETERMINE IF SHE NEEDS TREATMENT FOR OR ISOLATION FOR BED BUGS. PER PT PCP OFFICE IS TO SCHEDULE AN APPOINTMENT FOR NEXT WEEK. NAD NOTED, SAFETY MAINTAINED, CALL LIGHT IN REACH. HX:DM, SEIZURES, HTN
[2023-01-09 15:53] LABS: BASOPHILS # (AUTO) 0.1 K/uL (0.00-0.22); BASOPHILS % (AUTO) 0.6 % (0.0-2.0); EOSINOPHILS % (AUTO) 0.3 % (0.0-4.0); HEMOGLOBIN 12.6 g/dL (12.0-16.0); LYMPHOCYTES # (AUTO) 0.7 K/uL (2.5-16.5); LYMPHOCYTES % (AUTO) 5.8 % (20.5-51.1); MEAN CORPUSCULAR HEMOGLOBIN 30 pg (27-31); MEAN CORPUSCULAR HGB CONC 34 g/dL (33-37); MEAN CORPUSCULAR VOLUME 89.7 fL (80-94); MONOCYTES # (AUTO) 1.1 K/uL (0.8-1.0); MONOCYTES % (AUTO) 8.9 % (1.7-9.3); NEUTROPHILS # (AUTO) 10.1 K/uL (1.8-7.7); NEUTROPHILS % (AUTO) 84.4 % (42.2-75.2); PLATELET COUNT (AUTO) 164 K/uL (140-450); RED BLOOD CELL COUNT(AUTO) 4.13 MIL/uL (4.20-5.40)
[2023-01-09 16:07] LABS: ALBUMIN 3.2 g/dL (3.4-5.0); ANION GAP 22.9 (8-16); CARBON DIOXIDE 19.4 mmol/L (21-32); CREATININE 1.6 mg/dL (0.6-1.3); POTASSIUM 4.3 mmol/L (3.5-5.1); TOTAL BILIRUBIN 0.7 mg/dL (0.0-1.0)
[2023-01-09] MEDS ORDERED: INSULIN REGULAR, HUMAN 100 UNIT/ML VIAL SUBQ ONE (16:25)
[2023-01-09] MEDS ORDERED: NACL 0.9% 1,000 ML IV ONE (16:25)
[2023-01-09] MEDS ORDERED: ACETAMINOPHEN 325 MG TAB PO PRN (16:50)
[2023-01-09] MEDS ORDERED: VANCOMYCIN PER PHARMACY MC PRN (16:50)
[2023-01-09] MEDS ORDERED: POTASSIUM CHLORIDE 10 MEQ TABER PO PRN (16:50)
[2023-01-09] MEDS ORDERED: ZOLPIDEM 5 MG TAB PO PRN (16:50)
[2023-01-09] MEDS ORDERED: MORPHINE SULFATE 4 MG/ML SYR IVP PRN (16:50)
[2023-01-09] MEDS ORDERED: ONDANSETRON 4 MG/2 ML VIAL IVP PRN (16:50)
[2023-01-09] MEDS ORDERED: KCL 20 MEQ IN 100 mL PREMIX 200 ML IV PRN (16:50)
[2023-01-09] MEDS ORDERED: MAG SULF 2000 MG/WATER PREMIX 50 ML IV PRN (16:50)
[2023-01-09] MEDS ORDERED: LORazepam 1 MG TAB PO PRN (16:50)
[2023-01-09] MEDS ORDERED: DEXTROSE 50% 50 ML SYR IVP PRN (16:55)
[2023-01-09] MEDS ORDERED: cefTRIAXone 1,000 MG VIAL ONE (17:19)
[2023-01-09 17:42] VITALS: O2SAT 99
--- NOTE | 2023-01-09 18:19 | NUR ---
VANCOCIN RE-SCHEDULED PER PHARMACY FOR 2099.
[2023-01-09] MEDS: NACL 0.9% 1,000 ML IV SCH (20:00)
[2023-01-09 20:25] VITALS: PULSE 82; RESP 18; TEMP 98.4; O2SAT 94
--- NOTE | 2023-01-09 20:25 | NUR ---
RECEIVED PT FROM ER VIA [facility]. PT IS AWAKE AND ALERT. AMBULATES WITH WALKER. ON RA NOT IN ANY DISTRESS. DENIES ANY PAIN. PT HAS IV ON RIGHT AC 20 GAUGE SALINE LOCK. PT HAS CELLULITIS ON LEFT LEG. SOME SCRATCHES ON RIGHT LOWER LEG. POC DISCUSSED. CALL LIGHT WITHIN REACH. WILL CONTINUE TO MONITOR THE PT.
[2023-01-09 20:30] VITALS: BP 138/51; PULSE 82; RESP 18; TEMP 98.4; O2SAT 94
--- NOTE | 2023-01-09 20:30 | NUR ---
Patient will be admitted to care of Dr. Richard. [facility] Will [facility]. Belongings list completed. Report to Kevin MERINO.
[2023-01-09] MEDS: VANCOMYCIN 1,000 MG in NACL 0.9% 250 ML IV SCH (21:20)
[2023-01-09] MEDS: INSULIN LISPRO SLIDING SCALE 100 UNITS/ML VIAL SUBQ PRN (21:25)
[2023-01-09] MEDS: BLOOD GLUCOSE MONITORING 1 DEV DEV FS SCH (21:25)
--- NOTE | 2023-01-10 | NUR ---
PT WAS ASSISTED TO THE RESTROOM AND BACK TO BED SAFELY. NO OTHER COMPLAINS. CALL LIGHT WITHIN REACH.
--- NOTE | 2023-01-10 03:55 | NUR ---
VITAL SIGNS TAKEN AND STABLE. PT HAS NO COMPLAINS AT THIS TIME. DENIES ANY PAIN. CALL LIGHT WITHIN REACH. WILL CONTINUE TO MONITOR THE PT.
[2023-01-10] MEDS: NACL 0.9% 1,000 ML IV SCH ×2 (05:20→17:23)
[2023-01-10] MEDS: BLOOD GLUCOSE MONITORING 1 DEV DEV FS SCH ×4 (06:36→21:04)
[2023-01-10] MEDS: INSULIN LISPRO SLIDING SCALE 100 UNITS/ML VIAL SUBQ PRN ×4 (06:36→21:04)
[2023-01-10 06:39] LABS: ANION GAP 13.5 (8-16); CARBON DIOXIDE 23.9 mmol/L (21-32); CREATININE 1.3 mg/dL (0.6-1.3); POTASSIUM 5.4 mmol/L (3.5-5.1)
[2023-01-10 06:42] LABS: BASOPHILS % (AUTO) 0.2 % (0.0-2.0); EOSINOPHILS % (AUTO) 0.3 % (0.0-4.0); HEMATOCRIT 31.6 % (36-48); LYMPHOCYTES # (AUTO) 0.6 K/uL (2.5-16.5); MEAN CORPUSCULAR HEMOGLOBIN 31 pg (27-31); MEAN CORPUSCULAR HGB CONC 35 g/dL (33-37); MEAN CORPUSCULAR VOLUME 89.6 fL (80-94); MONOCYTES # (AUTO) 0.8 K/uL (0.8-1.0); MONOCYTES % (AUTO) 8.3 % (1.7-9.3); NEUTROPHILS # (AUTO) 8.2 K/uL (1.8-7.7); NEUTROPHILS % (AUTO) 85.2 % (42.2-75.2); PLATELET COUNT (AUTO) 145 K/uL (140-450); RED BLOOD CELL COUNT(AUTO) 3.52 MIL/uL (4.20-5.40); RED CELL DISTRIBUTION WIDTH 14.7 % (11.6-13.7); WHITE BLOOD COUNT (AUTO) 9.7 K/uL (4.8-10.8)
--- NOTE | 2023-01-10 07:03 | NUR ---
ENDORSED PT TO DAY SHIFT NURSE FOR CONTINUITY OF CARE. PT IS STABLE.
--- NOTE | 2023-01-10 07:08 | NUR ---
receive the patinet from the double end chucking machine operator rn in rm 115 aox4 admitting diagnosis of cellulitis of the left foot. will continue to monitor
[2023-01-10 08:00] VITALS: BP 131/65; PULSE 78; RESP 19; TEMP 97.4; O2SAT 94
[2023-01-10 08:10] VITALS: TEMP 97.1
[2023-01-10 08:11] VITALS: PULSE 70; RESP 19; O2SAT 93
--- NOTE | 2023-01-10 08:44 | NUR ---
PATIENT HAS BEEN SCREENED AND CATEGORIZED MODERATE NUTRITION RISK. PATIENT WILL BE SEEN WITHIN 3-5 DAYS OF ADMISSION. 01/12/23-01/14/[address]
[2023-01-10] MEDS ORDERED: SODIUM POLYSTYRENE 15 GM/60 ML UDBTL PO SCH (09:30)
[2023-01-10] MEDS: DOCUSATE SODIUM 100 MG GELCAP PO SCH (09:48)
[2023-01-10] MEDS: INSULIN LANTUS 100 UNITS/ML 10 ML VIAL SUBQ SCH (09:51)
--- NOTE | 2023-01-10 14:50 | NUR ---
place a new iv on left antecubital . patent and intact .
--- NOTE | 2023-01-10 15:17 | NUR ---
RECEIVED ORDER FOR PATIENT TO GET A FRONT WHEEL WALKER. FAXED ALL PAPERWORK TO [facility] AND [facility]. WILL FOLLOW UP WITH UPDATES. Addendum: 01/11/23 at 1047 by RONNA ROGERS CM [facility] CALLED AND ASKED FOR THE HARD COPY AUTH TO BE FAXED TO THEM. PULLED HARD AUTH FROM [facility] PORTAL AND FAXED TO THEM Addendum: 01/12/23 at 3616 by RONNA ROGERS CM CALLED AND SPOKE WITH MINOR [phone] AT [facility] WHO SAID TO SEND ORDERS AND PAPERWORK TO [facility] . PATIENT WILL GET HER FWW DELIVERED AT HOME.
[2023-01-10 16:00] VITALS: BP 135/68; PULSE 84; RESP 19; TEMP 98.1; O2SAT 94
--- NOTE | 2023-01-10 19:49 | NUR ---
will endorse to shift supervisor rn rn fro continuity of care
--- NOTE | 2023-01-10 19:50 | NUR ---
RECEIVED PT FROM AM NURSE FOR CONTINUITY OF CARE. PT IS STABLE
[2023-01-10 20:00] VITALS: BP 139/57; PULSE 88; RESP 19; TEMP 97.6; TEMP 97.9; O2SAT 97
[2023-01-10] MEDS: VANCOMYCIN 1,000 MG in NACL 0.9% 250 ML IV SCH (21:09)
[2023-01-11 04:00] VITALS: BP 130/61; PULSE 83; RESP 19; TEMP 97.9; O2SAT 97
[2023-01-11] MEDS: NACL 0.9% 1,000 ML IV SCH ×2 (06:20→18:00)
[2023-01-11 06:29] LABS: BASOPHILS % (AUTO) 0.6 % (0.0-2.0); EOSINOPHILS # (AUTO) 0.1 K/uL (0-0.4); EOSINOPHILS % (AUTO) 0.7 % (0.0-4.0); HEMATOCRIT 31.5 % (36-48); HEMOGLOBIN 11.1 g/dL (12.0-16.0); LYMPHOCYTES # (AUTO) 1.1 K/uL (2.5-16.5); LYMPHOCYTES % (AUTO) 13.7 % (20.5-51.1); MEAN CORPUSCULAR HEMOGLOBIN 31 pg (27-31); MEAN CORPUSCULAR HGB CONC 35 g/dL (33-37); MEAN CORPUSCULAR VOLUME 88.6 fL (80-94); MONOCYTES # (AUTO) 0.6 K/uL (0.8-1.0); NEUTROPHILS # (AUTO) 6.1 K/uL (1.8-7.7); PLATELET COUNT (AUTO) 156 K/uL (140-450); RED BLOOD CELL COUNT(AUTO) 3.56 MIL/uL (4.20-5.40); RED CELL DISTRIBUTION WIDTH 14.6 % (11.6-13.7)
[2023-01-11 06:30] LABS: ANION GAP 14.8 (8-16); CARBON DIOXIDE 22.6 mmol/L (21-32); CREATININE 1.1 mg/dL (0.6-1.3); POTASSIUM 4.4 mmol/L (3.5-5.1)
[2023-01-11] MEDS: INSULIN LISPRO SLIDING SCALE 100 UNITS/ML VIAL SUBQ PRN ×4 (06:44→20:40)
[2023-01-11] MEDS: BLOOD GLUCOSE MONITORING 1 DEV DEV FS SCH ×4 (06:46→20:40)
[2023-01-11 07:15] VITALS: TEMP 97.1
[2023-01-11 07:16] VITALS: PULSE 85; RESP 20; O2SAT 99
--- NOTE | 2023-01-11 07:25 | NUR ---
receive the patient from the shift supervisor film processing rn in rm 115 aox4 with admitting diagnosis of cellulitis . will continue to monitor
[2023-01-11 08:00] VITALS: BP 134/62; PULSE 76; RESP 16; TEMP 98.1; O2SAT 97
[2023-01-11] MEDS: DOCUSATE SODIUM 100 MG GELCAP PO SCH (08:22)
[2023-01-11] MEDS: INSULIN LANTUS 100 UNITS/ML 10 ML VIAL SUBQ SCH (08:26)
[2023-01-11] MEDS ORDERED: MAG SULF 2000 MG/WATER PREMIX 50 ML IV SCH (09:00)
[2023-01-11] MEDS ORDERED: MAG SULF 2000 MG/WATER PREMIX 50 ML IV ONE (09:05)
--- NOTE | 2023-01-11 10:26 | NUR ---
pt positive on MRSA nares . Md aware . order for contact isolation for the patient.
[2023-01-11 11:23] LABS: APPEARANCE,URINE CLEAR (CLEAR); BILIRUBIN,URINE NEGATIVE (NEGATIVE); BLOOD, URINE NEGATIVE (NEGATIVE); COLOR,URINE YELLOW (YELLOW); LEUKOCYTE ESTERASE ,URINE NEGATIVE (NEGATIVE); NITRITE, URINE NEGATIVE (NEGATIVE); UGLUCOSE 2+ (NEGATIVE)
[2023-01-11] MEDS: levETIRAcetam 500 MG TAB PO SCH ×2 (12:05→20:36)
[2023-01-11 16:00] VITALS: BP 128/63; PULSE 77; RESP 16; TEMP 98.3; O2SAT 97
--- NOTE | 2023-01-11 19:13 | NUR ---
will endorse to transport technician rn Sourav for continuity of care . still for antibiotics , nephrology , pulmonology consult
--- NOTE | 2023-01-11 19:20 | NUR ---
RECEIVED PATIENT FROM AM NURSE FOR CONTINUITY OF CARE. PT IS STABLE
[2023-01-11 20:00] VITALS: PULSE 82; RESP 18; TEMP 97.9; O2SAT 97
[2023-01-11] MEDS: VANCOMYCIN 1,000 MG in NACL 0.9% 250 ML IV SCH (20:37)
[2023-01-11] MEDS: HYDROcodone/APAP 5/325 MG 1 TAB TAB PO PRN (21:17)
[2023-01-12 04:00] VITALS: BP 132/69; PULSE 78; RESP 18; TEMP 98.1; O2SAT 97
[2023-01-12 06:00] LABS: BASOPHILS # (AUTO) 0.1 K/uL (0.00-0.22); BASOPHILS % (AUTO) 0.9 % (0.0-2.0); EOSINOPHILS # (AUTO) 0.1 K/uL (0-0.4); EOSINOPHILS % (AUTO) 1.7 % (0.0-4.0); HEMATOCRIT 29.9 % (36-48); HEMOGLOBIN 10.4 g/dL (12.0-16.0); LYMPHOCYTES # (AUTO) 0.9 K/uL (2.5-16.5); MEAN CORPUSCULAR HEMOGLOBIN 31 pg (27-31); MEAN CORPUSCULAR HGB CONC 35 g/dL (33-37); MEAN CORPUSCULAR VOLUME 88.9 fL (80-94); MONOCYTES # (AUTO) 0.5 K/uL (0.8-1.0); MONOCYTES % (AUTO) 7.8 % (1.7-9.3); NEUTROPHILS # (AUTO) 4.7 K/uL (1.8-7.7); NEUTROPHILS % (AUTO) 75.6 % (42.2-75.2); PLATELET COUNT (AUTO) 153 K/uL (140-450); RED BLOOD CELL COUNT(AUTO) 3.37 MIL/uL (4.20-5.40); RED CELL DISTRIBUTION WIDTH 14.7 % (11.6-13.7); WHITE BLOOD COUNT (AUTO) 6.2 K/uL (4.8-10.8)
[2023-01-12] MEDS: HYDROcodone/APAP 5/325 MG 1 TAB TAB PO PRN (06:12)
[2023-01-12 06:47] LABS: ANION GAP 13.4 (8-16); CARBON DIOXIDE 24.1 mmol/L (21-32); CREATININE 1.2 mg/dL (0.6-1.3); POTASSIUM 4.5 mmol/L (3.5-5.1)
[2023-01-12] MEDS: INSULIN LISPRO SLIDING SCALE 100 UNITS/ML VIAL SUBQ PRN (06:48)
[2023-01-12] MEDS: BLOOD GLUCOSE MONITORING 1 DEV DEV FS SCH (06:51)
[2023-01-12] MEDS: NACL 0.9% 1,000 ML IV SCH (07:03)
--- NOTE | 2023-01-12 07:10 | NUR ---
receive the patient from the public relations rn in rm 115 admitting diagnosis left foot cellulitis . no complain of pain at this time . will continue to monitor
--- NOTE | 2023-01-12 07:29 | NUR ---
endorsed pt to am nurse for continuity of care. pt is stable
[2023-01-12 08:00] VITALS: BP 106/57; PULSE 77; RESP 18; TEMP 97.1; O2SAT 99
[2023-01-12 08:08] VITALS: TEMP 97.1
[2023-01-12 08:34] VITALS: PULSE 85; RESP 19; O2SAT 98
[2023-01-12] MEDS: levETIRAcetam 500 MG TAB PO SCH (08:34)
[2023-01-12] MEDS: DOCUSATE SODIUM 100 MG GELCAP PO SCH (08:34)
[2023-01-12] MEDS: INSULIN LANTUS 100 UNITS/ML 10 ML VIAL SUBQ SCH (08:37)
[2023-01-12] MEDS ORDERED: LINE600T4 PO (08:55)
[2023-01-12 09:17] VITALS: BP 106/58; PULSE 98; RESP 18; TEMP 97.1
--- NOTE | 2023-01-12 11:00 | NUR ---
PATIENT A/OX4 , VSS , PATIENT HAS DISCHARGE ORDER TO GO HOME , DISCHARGE PACKET EXPLAIN FOR PT , PT VERBALIZED UNDERSTANDING OF GIVEN , MEDICATION RECONCILED , ALL HER DOCUMENT SINGED AND PLACE ON CHARGE , PHOTO TAKEN BEFOR DISCHARGE , PAT IV AND ARM BAND REMOVED , ASSISTED TO LOBBY AND PICKED BY [facility] TO HOME .
== END 2023-01-12 10:30 | disposition home or self-care (01) | DRG 383 ==
LOC: MED 13:07 → MTU 16:51
PROVIDERS: ADMIT Internal Medicine; ATTEND Internal Medicine
DX: L03.116 Cellulitis of left lower limb (principal); N17.9 Acute kidney failure, unspecified; E44.0 Moderate protein-calorie malnutrition; E11.9 Type 2 diabetes mellitus without complications; D72.829 Elevated white blood cell count, unspecified; D64.9 Anemia, unspecified; E87.5 Hyperkalemia; G40.909 Epilepsy, unspecified, not intractable, without status epilepticus; I10 Essential (primary) hypertension; Z88.1 Allergy status to other antibiotic agents; Z88.0 Allergy status to penicillin; Z88.2 Allergy status to sulfonamides; Z88.8 Allergy status to other drugs, medicaments and biological substances; Z79.899 Other long term (current) drug therapy; Z90.710 Acquired absence of both cervix and uterus; Z90.49 Acquired absence of other specified parts of digestive tract; Z22.322 Carrier or suspected carrier of Methicillin resistant Staphylococcus aureus; Z68.26 Body mass index [BMI] 26.0-26.9, adult
CPT/HCPCS: 36415; 80048; 80053; 80202; 81003; 82948; 83036; 83605; 83735; 85025; 85651; 86140; 87040; 87081; 96372; 96374; 99285; J0696; J1644; J1815; J3370; J3475; J7030

== ENCOUNTER 2023-07-16 13:34 | Emergency (ER) | payer MEDICAID, OTHER ==
[~2023-07-16] VITALS: Ht 170.2 cm; Wt 73.0 kg
[~2023-07-16 13:34] MED LIST changes: +LINE600T4 PO; -SULF-59 PO
[2023-07-16 13:47] VITALS: BP 117/68; PULSE 83; RESP 19; TEMP 98.1; O2SAT 97
[2023-07-16 14:33] VITALS: O2SAT 97
== END 2023-07-16 15:17 | disposition home or self-care (01) ==
LOC: MED 13:34
DX: S09.90XA Unspecified injury of head, initial encounter (principal); E11.9 Type 2 diabetes mellitus without complications; I10 Essential (primary) hypertension; Z88.0 Allergy status to penicillin; Z88.2 Allergy status to sulfonamides; Z88.8 Allergy status to other drugs, medicaments and biological substances; Z79.4 Long term (current) use of insulin; Z79.899 Other long term (current) drug therapy; W18.09XA Striking against other object with subsequent fall, initial encounter; Y93.89 Activity, other specified; Y92.89 Other specified places as the place of occurrence of the external cause; Y99.8 Other external cause status
CPT/HCPCS: 70450; 90471; 90715; 99285

== ENCOUNTER 2023-11-25 17:17 | Inpatient (IN) | payer MEDICAID ==
[~2023-11-25] VITALS: Ht 165.1 cm; Wt 65.8 kg
[2023-11-25 17:46] VITALS: BP 120/69; PULSE 86; RESP 18; TEMP 98; O2SAT 99
[2023-11-25] MEDS ORDERED: ONDANSETRON 4 MG ODT PO ONE (18:35)
[2023-11-25 19:01] LABS: BASOPHILS # (AUTO) 0.2 K/uL (0.00-0.22); BASOPHILS % (AUTO) 1.3 % (0.0-2.0); EOSINOPHILS % (AUTO) 0.1 % (0.0-4.0); HEMATOCRIT 42.8 % (36-48); HEMOGLOBIN 14.5 g/dL (12.0-16.0); LYMPHOCYTES # (AUTO) 0.5 K/uL (2.5-16.5); MEAN CORPUSCULAR HEMOGLOBIN 32 pg (27-31); MEAN CORPUSCULAR HGB CONC 34 g/dL (33-37); MEAN CORPUSCULAR VOLUME 93.7 fL (80-94); MONOCYTES # (AUTO) 0.5 K/uL (0.8-1.0); MONOCYTES % (AUTO) 3.5 % (1.7-9.3); NEUTROPHILS # (AUTO) 13.5 K/uL (1.8-7.7); NEUTROPHILS % (AUTO) 91.4 % (42.2-75.2); PLATELET COUNT (AUTO) 202 K/uL (140-450); RED BLOOD CELL COUNT(AUTO) 4.56 MIL/uL (4.20-5.40); RED CELL DISTRIBUTION WIDTH 16.1 % (11.6-13.7); WHITE BLOOD COUNT (AUTO) 14.8 K/uL (4.8-10.8)
[2023-11-25 19:10] LABS: LYMPHOCYTES % (AUTO) 3.7 % (20.5-51.1)
[2023-11-25] MEDS: NACL 0.9% 1,000 ML IV SCH ×2 (19:19→21:59)
[2023-11-25] MEDS: ONDANSETRON 4 MG/2 ML VIAL IVP ONE (19:19)
[2023-11-25] MEDS: PANTOPRAZOLE 40 MG INJ VIAL IVP ONE (19:19)
[2023-11-25 19:25] LABS: ANION GAP 44.9 (8-16); CALCIUM 10.1 mg/dL (8.5-10.1); CREATININE 2.1 mg/dL (0.6-1.3); POTASSIUM 4.6 mmol/L (3.5-5.1)
[2023-11-25 19:28] LABS: LACTIC ACID 3.6 mmol/L (0.4-2.0)
[2023-11-25 19:29] LABS: ALANINE AMINOTRANSFERASE 13 U/L (12-78); ALBUMIN 3.9 g/dL (3.4-5.0); ALKALINE PHOSPHATASE 97 U/L (50-136); ASPARTATE AMINOTRANSFERASE 23 U/L (15-37); BILIRUBIN,DIRECT 0.1 mg/dL (0.0-0.3); CREATINE KINASE, TOTAL 59 U/L (26-192); LIPASE 19 U/L (16-77); TOTAL BILIRUBIN 0.8 mg/dL (0.0-1.0); TOTAL PROTEIN, SERUM 8.3 g/dL (6.4-8.2)
[2023-11-25 19:31] LABS: CARBON DIOXIDE 6.7 mmol/L (21-32)
[2023-11-25] MEDS ORDERED: cefTRIAXone 1,000 MG VIAL ONE (19:36)
[2023-11-25] MEDS: NACL 0.9% 1,000 ML IV ONE (19:41)
[2023-11-25 19:43] LABS: INR 1.06 (0.8-1.2); PARTIAL THROMBOPLASTIN TIME 22.6 secs (22-35.6); PROTHROMBIN TIME 11.1 secs (10.8-13.4)
[2023-11-25 19:49] LABS: SALICYLATE 6.7 mg/dL (2.8-20.0)
[2023-11-25] MEDS: INSULIN REGULAR, HUMAN 100 UNIT in NACL 0.9% 100 ML IV ONE (20:18)
[2023-11-25] MEDS ORDERED: guaiFENesin DM 200/20 MG-10 ML 10 ML UDC PO PRN (20:20)
[2023-11-25] MEDS ORDERED: DEXT 5% / NACL 0.45% 1,000 ML IV SCH (20:20)
[2023-11-25] MEDS ORDERED: HYDROcodone/APAP 7.5/325 MG 1 TAB PO PRN (20:20)
[2023-11-25] MEDS ORDERED: DEXTROSE 50% 50 ML SYR IVP PRN (20:20)
[2023-11-25] MEDS ORDERED: DOCUSATE SODIUM 100 MG GELCAP PO PRN (20:20)
[2023-11-25] MEDS ORDERED: POTASSIUM CHLORIDE 40 MEQ, LIDOCAINE MPF 1% 25 MG in NACL 0.9% 250 ML IV PRN ×2 (20:20)
[2023-11-25] MEDS: BLOOD GLUCOSE MONITORING 1 DEV DEV FS SCH ×2 (20:20→23:55)
[2023-11-25] MEDS ORDERED: ACETAMINOPHEN 325 MG TAB PO PRN (20:20)
[2023-11-25] MEDS: INSULIN REGULAR, HUMAN 100 UNIT/ML VIAL IVP ONE (20:20)
[2023-11-25] MEDS: INSULIN REGULAR, HUMAN 100 UNIT in NACL 0.9% 100 ML IV SCH (20:20)
[2023-11-25] MEDS: KCL 20 MEQ IN 100 mL PREMIX 200 ML IV ONE (20:35)
[2023-11-25 20:53] LABS: FLU A ANTIGEN negative (NEGATIVE); FLU B ANTIGEN NEGATIVE (NEGATIVE)
[2023-11-25 21:22] LABS: BILIRUBIN,URINE 2+ (NEGATIVE); BLOOD, URINE TRACE-I (NEGATIVE); COLOR,URINE YELLOW (YELLOW); LEUKOCYTE ESTERASE ,URINE NEGATIVE (NEGATIVE); NITRITE, URINE NEGATIVE (NEGATIVE); PROTEIN,URINE TRACE (NEGATIVE); UGLUCOSE 3+ (NEGATIVE); UROBILINOGEN,URINE 0.2 EU/dL (0.2 - 1)
[2023-11-25 21:28] LABS: APPEARANCE,URINE SLIGHTLY HAZY (CLEAR)
[2023-11-25 21:31] LABS: ICTOTEST NEGATIVE (NEGATIVE); RBC,URINE 0-5 /HPF (0-5); WBC,URINE 0 /HPF (0-5)
[2023-11-25 21:32] LABS: BACTERIA,URINE 0-2 /HPF (None Seen); MUCUS,URINE None Seen /LPF (None Seen); SQUAMOUS EPITHELIAL CELL,UR 0-3 (FEW) /LPF (0-3 (FEW))
[2023-11-25] MEDS: levETIRAcetam 500 MG TAB PO SCH (21:49)
[2023-11-25 22:55] VITALS: PULSE 91; RESP 12; O2SAT 99
[2023-11-25 23:00] VITALS: BP 150/66; PULSE 91; RESP 12; TEMP 96.6; O2SAT 99
[2023-11-25] MEDS: DEXT 5% / NACL 0.45% 1,000 ML IV SCH (23:00)
[2023-11-25 23:41] VITALS: PULSE 99
[2023-11-26] VITALS (24 sets, daily range): BP systolic 105–143; BP diastolic 48–71; PULSE 71–105; RESP 11–23; TEMP 97.2–98.3; O2SAT 96–100
[2023-11-26 00:49] LABS: ANION GAP 40.6 (8-16); CALCIUM 8.8 mg/dL (8.5-10.1); CREATININE 1.9 mg/dL (0.6-1.3); POTASSIUM 4.4 mmol/L (3.5-5.1)
[2023-11-26 00:52] LABS: CARBON DIOXIDE 6.8 mmol/L (21-32)
[2023-11-26 00:55] LABS: MAGNESIUM 2.5 mg/dL (1.8-2.4); PHOSPHORUS 6.8 mg/dL (2.5-4.9)
[2023-11-26] MEDS ORDERED: SODIUM BICARBONATE 8.4% PFS 50 MEQ/50 ML SYR IVP ONE (03:12)
[2023-11-26] MEDS: SODIUM BICARBONATE 8.4% 150 MEQ in DEXTROSE 5% 1,000 ML IV SCH (03:28)
[2023-11-26 05:28] LABS: BASOPHILS % (AUTO) 0.4 % (0.0-2.0); LYMPHOCYTES # (AUTO) 0.6 K/uL (2.5-16.5); LYMPHOCYTES % (AUTO) 4.7 % (20.5-51.1); MEAN CORPUSCULAR HEMOGLOBIN 32 pg (27-31); MEAN CORPUSCULAR HGB CONC 34 g/dL (33-37); MONOCYTES # (AUTO) 0.3 K/uL (0.8-1.0); MONOCYTES % (AUTO) 2.6 % (1.7-9.3); NEUTROPHILS # (AUTO) 11.1 K/uL (1.8-7.7); NEUTROPHILS % (AUTO) 92.3 % (42.2-75.2); PLATELET COUNT (AUTO) 142 K/uL (140-450); RED BLOOD CELL COUNT(AUTO) 4.13 MIL/uL (4.20-5.40)
[2023-11-26 07:00] LABS: ANION GAP 29.9 (8-16); CALCIUM 8.4 mg/dL (8.5-10.1); CARBON DIOXIDE 11.7 mmol/L (21-32); CREATININE 1.8 mg/dL (0.6-1.3); POTASSIUM 3.6 mmol/L (3.5-5.1)
[2023-11-26 07:10] LABS: LACTIC ACID 1.6 mmol/L (0.4-2.0)
[2023-11-26 08:00] LABS: MAGNESIUM 2.1 mg/dL (1.8-2.4); PHOSPHORUS 1.7 mg/dL (2.5-4.9)
[2023-11-26] MEDS: PANTOPRAZOLE 40 MG INJ VIAL IVP SCH (08:51)
[2023-11-26 08:59] LABS: ANION GAP 17.3 (8-16); CALCIUM 8.4 mg/dL (8.5-10.1); CARBON DIOXIDE 21.6 mmol/L (21-32); CREATININE 1.8 mg/dL (0.6-1.3)
[2023-11-26 09:00] LABS: POTASSIUM 2.9 mmol/L (3.5-5.1)
[2023-11-26] MEDS ORDERED: PANTOPRAZOLE 40 MG TABEC PO SCH (09:00)
[2023-11-26 09:01] LABS: MAGNESIUM 1.9 mg/dL (1.8-2.4)
[2023-11-26] MEDS: SODIUM BICARBONATE 8.4% PFS 50 MEQ/50 ML SYR IVP ONE ×2 (09:04→09:09)
[2023-11-26 09:05] LABS: PHOSPHORUS 1.1 mg/dL (2.5-4.9)
[2023-11-26] MEDS: ONDANSETRON 4 MG/2 ML VIAL IM/IVP PRN (09:23)
[2023-11-26] MEDS: KCL 20 MEQ IN 100 mL PREMIX 200 ML IV PRN ×2 (09:36→17:21)
[2023-11-26 12:19] LABS: BLOOD GAS BASE EXCESS 4.5 mmol/L (-2.0-2.0); BLOOD GAS PCO2 37.5 mmHg (35-45); BLOOD GAS PH 7.491 (7.35-7.45); BLOOD GAS PO2 78.1 mmHg (75-100)
[2023-11-26 12:20] LABS: BLOOD GAS O2 SAT% 96.5 % (92.0-98.5)
[2023-11-26 12:46] LABS: ANION GAP 13.1 (8-16); CALCIUM 8.2 mg/dL (8.5-10.1); CARBON DIOXIDE 28.9 mmol/L (21-32); CREATININE 1.7 mg/dL (0.6-1.3)
[2023-11-26 12:50] LABS: MAGNESIUM 1.8 mg/dL (1.8-2.4)
[2023-11-26 12:55] LABS: PHOSPHORUS 1.1 mg/dL (2.5-4.9)
[2023-11-26] MEDS: POTASSIUM PHOSPHATE 15 MM in NACL 0.9% 250 ML IV SCH (13:01)
[2023-11-26] MEDS ORDERED: VANCOMYCIN PER PHARMACY MC PRN (14:30)
[2023-11-26] MEDS ORDERED: VANCOMYCIN 1,000 MG in DEXTROSE 5% 250 ML IV SCH (14:50)
[2023-11-26 16:19] LABS: AMPHETAMINE, URINE NEGATIVE ng/ml (NEG <=1000); BARBITURATE, URINE POSITIVE ng/ml (NEG <=200)
[2023-11-26 16:20] LABS: BENZODIAZEPINE, URINE NEGATIVE ng/mL (NEG <=200); CANNABINOID, URINE NEGATIVE ng/mL (NEG <=50); COCAINE, URINE NEGATIVE ng/mL (NEG <=300); OPIATE, URINE NEGATIVE ng/mL (NEG <=2000); PHENCYCLIDINE SCREEN,URINE NEGATIVE ng/mL (NEG <=25)
[2023-11-26] MEDS: VANCOMYCIN 1,000 MG in DEXTROSE 5% 250 ML IV SCH (16:20)
[2023-11-26 16:29] LABS: ANION GAP 10.3 (8-16); CALCIUM 8.1 mg/dL (8.5-10.1); CARBON DIOXIDE 30.7 mmol/L (21-32); CREATININE 1.6 mg/dL (0.6-1.3)
[2023-11-26 16:33] LABS: MAGNESIUM 1.8 mg/dL (1.8-2.4); PHOSPHORUS 1.7 mg/dL (2.5-4.9)
[2023-11-26 20:26] LABS: ANION GAP 10.5 (8-16); CALCIUM 8.2 mg/dL (8.5-10.1); CARBON DIOXIDE 30.6 mmol/L (21-32); CREATININE 1.5 mg/dL (0.6-1.3); POTASSIUM 3.1 mmol/L (3.5-5.1)
[2023-11-26 20:37] LABS: MAGNESIUM 1.7 mg/dL (1.8-2.4); PHOSPHORUS 1.9 mg/dL (2.5-4.9)
[2023-11-26] MEDS: INSULIN LANTUS 100 UNITS/ML 10 ML VIAL SUBQ SCH (22:16)
[2023-11-27] VITALS (12 sets, daily range): BP systolic 96–128; BP diastolic 49–96; PULSE 72–90; RESP 12–20; TEMP 96–98; O2SAT 95–100
[2023-11-27 04:16] LABS: BASOPHILS % (AUTO) 0.9 % (0.0-2.0); EOSINOPHILS % (AUTO) 0.2 % (0.0-4.0); HEMATOCRIT 29.6 % (36-48); HEMOGLOBIN 10.6 g/dL (12.0-16.0); LYMPHOCYTES # (AUTO) 1.1 K/uL (2.5-16.5); LYMPHOCYTES % (AUTO) 20.3 % (20.5-51.1); MEAN CORPUSCULAR HEMOGLOBIN 32 pg (27-31); MEAN CORPUSCULAR HGB CONC 36 g/dL (33-37); MEAN CORPUSCULAR VOLUME 89.9 fL (80-94); MONOCYTES # (AUTO) 0.4 K/uL (0.8-1.0); MONOCYTES % (AUTO) 7.2 % (1.7-9.3); NEUTROPHILS # (AUTO) 3.8 K/uL (1.8-7.7); NEUTROPHILS % (AUTO) 71.4 % (42.2-75.2); PLATELET COUNT (AUTO) 83 K/uL (140-450); RED BLOOD CELL COUNT(AUTO) 3.29 MIL/uL (4.20-5.40); RED CELL DISTRIBUTION WIDTH 15.4 % (11.6-13.7); WHITE BLOOD COUNT (AUTO) 5.3 K/uL (4.8-10.8)
[2023-11-27 04:41] LABS: CALCIUM 7.6 mg/dL (8.5-10.1); CARBON DIOXIDE 28.3 mmol/L (21-32); CREATININE 1.2 mg/dL (0.6-1.3); POTASSIUM 3.3 mmol/L (3.5-5.1)
[2023-11-27 04:46] LABS: MAGNESIUM 1.6 mg/dL (1.8-2.4); PHOSPHORUS 2.2 mg/dL (2.5-4.9)
[2023-11-27] MEDS: POTASSIUM CHLORIDE 10 MEQ TABER PO PRN (06:28)
[2023-11-27] MEDS: MAG SULF 2000 MG/WATER PREMIX 100 ML IV PRN (06:37)
[2023-11-27] MEDS: BLOOD GLUCOSE MONITORING 1 DEV DEV FS SCH (07:26)
[2023-11-27] MEDS: INSULIN LISPRO SLIDING SCALE 100 UNITS/ML VIAL SUBQ PRN (07:42)
[2023-11-27] MEDS: VANCOMYCIN HCL 750 MG in DEXTROSE 5% 250 ML IV SCH (10:15)
[2023-11-27] MEDS: INSULIN LISPRO 100 UNITS/ML VIAL SUBQ SCH (11:54)
[2023-11-27] MEDS: INSULIN LANTUS 100 UNITS/ML 10 ML VIAL SUBQ SCH (12:40)
[2023-11-27] MEDS: ZOLPIDEM 5 MG TAB PO PRN (20:40)
[2023-11-28] VITALS: BP 113/57; PULSE 77; PULSE 79; RESP 19; TEMP 97; O2SAT 100
[2023-11-28 01:37] VITALS: O2SAT 99
[2023-11-28 04:00] VITALS: BP 124/83; PULSE 68; PULSE 70; RESP 19; TEMP 97.5; O2SAT 100
[2023-11-28 06:43] LABS: BASOPHILS % (AUTO) 0.9 % (0.0-2.0); EOSINOPHILS % (AUTO) 1.3 % (0.0-4.0); HEMATOCRIT 29.8 % (36-48); HEMOGLOBIN 10.7 g/dL (12.0-16.0); LYMPHOCYTES # (AUTO) 1.3 K/uL (2.5-16.5); LYMPHOCYTES % (AUTO) 37.7 % (20.5-51.1); MEAN CORPUSCULAR HEMOGLOBIN 32 pg (27-31); MEAN CORPUSCULAR HGB CONC 36 g/dL (33-37); MEAN CORPUSCULAR VOLUME 90.2 fL (80-94); MONOCYTES # (AUTO) 0.3 K/uL (0.8-1.0); MONOCYTES % (AUTO) 9.1 % (1.7-9.3); NEUTROPHILS # (AUTO) 1.8 K/uL (1.8-7.7); PLATELET COUNT (AUTO) 63 K/uL (140-450); RED BLOOD CELL COUNT(AUTO) 3.31 MIL/uL (4.20-5.40); RED CELL DISTRIBUTION WIDTH 15.5 % (11.6-13.7); WHITE BLOOD COUNT (AUTO) 3.5 K/uL (4.8-10.8)
[2023-11-28 08:00] VITALS: BP 129/69; PULSE 67; RESP 18; TEMP 97; O2SAT 100; O2SAT 97
[2023-11-28 09:25] LABS: ALBUMIN 2.4 g/dL (3.4-5.0); ANION GAP 8.3 (8-16); CALCIUM 7.7 mg/dL (8.5-10.1); CARBON DIOXIDE 29.6 mmol/L (21-32); POTASSIUM 3.9 mmol/L (3.5-5.1); TOTAL BILIRUBIN 0.6 mg/dL (0.0-1.0); TOTAL PROTEIN, SERUM 5.2 g/dL (6.4-8.2)
[2023-11-28 16:00] VITALS: BP 125/64; PULSE 73; RESP 18; TEMP 96.6; O2SAT 99
[2023-11-28] MEDS ORDERED: INSU100S22 SUBQ (18:01)
[2023-11-28] MEDS ORDERED: [UNRECOGNIZED DRUG - CODE] MC (18:02)
[2023-11-28 18:05] VITALS: BP 125/64; PULSE 73; RESP 18; TEMP 96.6
[2023-11-29] MEDS ORDERED: INSULIN LANTUS 100 UNITS/ML 10 ML VIAL SUBQ SCH (09:00)
== END 2023-11-28 19:40 | disposition home or self-care (01) | DRG 420 ==
LOC: MED 17:17 → MIC 20:16 → MTU 11-27 18:15
PROVIDERS: ADMIT Student in an Organized Health Care Education/Training Program; ATTEND Student in an Organized Health Care Education/Training Program
DX: E11.10 Type 2 diabetes mellitus with ketoacidosis without coma (principal); N17.0 Acute kidney failure with tubular necrosis; G93.41 Metabolic encephalopathy; R65.10 Systemic inflammatory response syndrome (SIRS) of non-infectious origin without acute organ dysfunction; I10 Essential (primary) hypertension; G40.909 Epilepsy, unspecified, not intractable, without status epilepticus; Z88.8 Allergy status to other drugs, medicaments and biological substances; Z88.0 Allergy status to penicillin; Z79.899 Other long term (current) drug therapy
CPT/HCPCS: 36415; 36600; 70450; 71045; 76770; 80048; 80053; 80076; 80202; 80305; 81001; 82550; 82803; 82948; 83036; 83605; 83690; 83735; 83880; 84100; 84484; 85025; 85610; 85730; 86886; 86900; 86901; 87040; 87081; 87086; 87186; 93005; 96374; 96375; 97116; 97163-GP; 99291; C9113; G0480; G0482; J0696; J1815; J2001; J2405; J3370; J3475; J3480; J3490; J7030; J7060; Q0092; Q0162

== ENCOUNTER 2024-02-05 14:28 | Emergency (ER) | payer MEDICARE, OTHER ==
[~2024-02-05] VITALS: Ht 167.6 cm; Wt 81.6 kg
[~2024-02-05 14:28] MED LIST changes: +INSU100S22 SUBQ; -LINE600T4 PO; +[UNRECOGNIZED DRUG - CODE] MC
[2024-02-05 14:29] VITALS: BP 140/78; PULSE 80; RESP 17; TEMP 97.4; O2SAT 97
[2024-02-05] MEDS: KETOROLAC 30 MG/ML VIAL IM ONE (17:58)
[2024-02-05] MEDS: oxyCODONE/APAP 5/325 MG 1 TAB TAB PO ONE (17:59)
[2024-02-05] MEDS ORDERED: LID5T TP (18:18)
== END 2024-02-05 18:50 | disposition home or self-care (01) ==
LOC: MED 14:28
DX: M25.561 Pain in right knee (principal); M25.562 Pain in left knee; I10 Essential (primary) hypertension; E11.9 Type 2 diabetes mellitus without complications; Z86.69 Personal history of other diseases of the nervous system and sense organs; Z79.899 Other long term (current) drug therapy; Z79.4 Long term (current) use of insulin; Z88.0 Allergy status to penicillin; Z88.2 Allergy status to sulfonamides; Z88.8 Allergy status to other drugs, medicaments and biological substances; Z88.1 Allergy status to other antibiotic agents
CPT/HCPCS: 73562; 96372; 99283; J1885